=== PATIENT | male | born 1985 | race African-American/Black ===

== ENCOUNTER 2018-11-14 17:37 | Inpatient (IN) ==
[2018-11-14] MEDS ORDERED: Sod Chloride 0.9% Inj 1,000 ML IV.SIG ONE (18:12)
[2018-11-14] MEDS ORDERED: Sod Chloride 0.9% Inj 1,000 ML IV.SIG SCH (18:30)
--- NOTE | 2018-11-14 18:32 | ED ---
HPI General Chief complaint: Nausea/Vomiting/Diarrhea Stated complaint: Medical Time Seen by Provider: 11/14/18 18:06 Source: patient Mode of arrival: ambulatory Limitations: no limitations History of Present Illness HPI narrative: Patient is a 33-year-old male presenting to the emergency department for evaluation of nausea, vomiting, dark urine and diarrhea. Patient symptoms started Thursday. He states that he noticed the dark urine. He has felt nauseated and has vomited several times over the weekend, none today. He reports 4-5 episodes of loose stools daily. He stated that his stools are light-colored. He reports more of a suprapubic pain however this is resolved. He denies any fever, chills, chest pain, shortness of breath. He reports that he drank alcohol Candelario night, to drink specifically and he has not had any alcohol in several months because he was incarcerated. He reports that he had a negative workup when he was first put in custodial. He denies any history of cirrhosis, hepatitis or IV drug use. Related Data Home Medications Medication Instructions Recorded Confirmed No Known Home Medications 11/14/18 11/14/18 Allergies Allergy/AdvReac Type Severity Reaction Status Date / Time *MDRO Multi-Drug Resistant AdvReac Unknown Uncoded 12/18/14 10:28 Organism Review of Systems ROS: all other systems reviewed are negative PMFSH History History Provided By: Patient Medical History Medical History Asthma (Acute) Social History Social History Substance History: Active Abuse Smoking Status: Current every day smoker Tobacco Type: Cigarettes How Often Do You Have a Drink Containing Alcohol: 2 to 4 times a month Recent Travel in [facility] within the Last 8 Weeks: No Recent Out of Country Travel within the Last 8 Weeks: No Exam Narrative Exam Narrative: GENERAL: Well-developed, well-nourished, alert -[place] male. Presenting in no acute distress. SKIN: Focused skin assessment warm/dry. HEAD: Atraumatic. Normocephalic. EYES: Pupils equal and round. Positive scleral icterus. No injection or drainage. ENT: No nasal bleeding or discharge. Mucous membranes pink and moist. NECK: Trachea midline. No JVD. CARDIOVASCULAR: Regular rate and rhythm. No murmur appreciated. RESPIRATORY: No accessory muscle use. Clear to auscultation. Breath sounds equal bilaterally. GASTROINTESTINAL: Abdomen soft, non-tender, nondistended. Hepatic and splenic margins not palpable. MUSCULOSKELETAL: No obvious deformities. No clubbing. No cyanosis. No edema. NEUROLOGICAL: Awake and alert. No obvious cranial nerve deficits. Motor grossly within normal limits. Normal speech. PSYCHIATRIC: Appropriate mood and affect; insight and judgment normal. Course Initial Documented Vital Signs Temperature 99.4 F 11/14/18 18:01 Pulse Rate 81 11/14/18 18:01 Respiratory Rate 20 11/14/18 18:01 Blood Pressure 156/93 H 11/14/18 18:01 Pulse Oximetry 99 11/14/18 18:01 Last Documented Vital Signs Temperature 99.4 F 11/14/18 18:01 Pulse Rate 81 11/14/18 18:01 Respiratory Rate 20 11/14/18 18:01 Blood Pressure 156/93 H 11/14/18 18:01 Pulse Oximetry 99 11/14/18 18:01 Medical Decision Making MDM Narrative Medical decision making narrative: Patient is otherwise well-appearing 33-year- old male who appears jaundiced, with nausea and vomiting, diarrhea since Thursday after having 2 alcoholic drinks. Labs and imaging ordered and pending. CBC with no acute findings, chemistry with significantly elevated liver enzymes 651/1749, bilirubin is 16.6. Ultrasound resulted with a liver of 20.2 cm, the gallbladder was not visualized. This was followed up with a CT scan of the abdomen pelvis. Gallbladder was collapsed with thickened roberson. This was reported as nonspecific. Patient was given 2 L of IV fluids, his vital signs remained stable. A hepatitis panel was ordered. Patient will be admitted for further evaluation. Discussed with Dr. Gomez who accepted admission. Admit orders placed. Patient was advised on clinical findings and plan of care and is agreeable to stay. Medical Screen Exam Complete: Yes Emergency Medical Condition: Yes Differential Diagnosis Differential Diagnosis: Cholecystitis versus pancreatitis versus obstruction versus hepatitis versus metabolic abnormality versus other Medical Records Medical records reviewed: Yes I reviewed the patient's medical records. Lab Data Lab results reviewed: Yes I reviewed the patient's lab results. Result diagrams: 11/14/18 18:34 11/14/18 18:34 Lab Results 11/14/18 11/14/18 11/14/18 Range/Units 18:34 18:34 18:34 WBC 7.2 (4.0-11.0) th/mm3 RBC 4.41 L (4.50-5.90) mil/mm3 Hgb 12.7 L (13.0-17.0) gm/dL Hct 38.3 L (39.0-51.0) % MCV 86.9 (80.0-100.0) fL MCH 28.9 (27.0-34.0) pg MCHC 33.2 (32.0-36.0) % RDW 14.1 (11.6-17.2) % Plt Count 294 (150-450) th/mm3 MPV 8.5 (7.0-11.0) fL Neut % (Auto) 60.3 (16.0-70.0) % Lymph % (Auto) 22.1 (9.0-44.0) % Evangeline % (Auto) 16.1 H (0.0-8.0) % Eos % (Auto) 0.7 (0.0-4.0) % Baso % (Auto) 0.8 (0.0-2.0) % Neut # (Auto) 4.3 (1.8-7.7) th/mm3 Lymph # (Auto) 1.6 (1.0-4.8) th/mm3 Evangeline # (Auto) 1.2 H (0.0-0.9) th/mm3 Eos # (Auto) 0.1 (0.0-0.4) th/mm3 Baso # (Auto) 0.1 (0.0-0.2) th/mm3 WBC Differential . Differential Comment Auto diff final PT (9.8-11.6) sec INR Ratio APTT (23.4-31.7) sec Sodium 136 (136-145) meq/L Potassium 4.0 (3.5-5.1) meq/L Chloride 104 (98-107) meq/L Carbon Dioxide 28.2 (21.0-32.0) meq/L Anion Gap 4 L (5-15) meq/L BUN 14 (7-18) mg/dL Creatinine 1.30 (0.60-1.30) mg/dL Estimated GFR 76 L (>89) mL/min Random Glucose 85 (74-106) mg/dL Calcium 8.4 L (8.5-10.1) mg/dL Magnesium 2.0 (1.5-2.5) mg/dL Total Bilirubin 16.6 H (0.2-1.0) mg/dL AST 651 H (15-37) U/L ALT 1759 H (12-78) U/L Alkaline Phosphatase 43 L (45-117) U/L Total Protein 8.0 (6.4-8.2) g/dL Albumin 2.8 L (3.4-5.0) g/dL Lipase 114 (73-393) U/L Urine Color Mar[place]uy (Yellw/Straw) Urine Clarity Hazy H (Clear) Urine pH 5.0 (5.0-8.5) Ur Specific Byron 1.028 (1.002-1.035) Urine Protein 30 H (Neg-Trace) mg/dL Urine Glucose (UA) Negative (Negative) mg/dL Urine Ketones Negative (Negative) mg/dL Urine Occult Blood Negative (Negative) Urine Nitrate Negative (Negative) Urine Bilirubin Moderate H (Negative) Urine Ictotest Positive H (Negative) Urine Urobilinogen 4 or greater (Less than 2) mg/dL Ur Leukocyte Esterase Negative (Negative) Urine RBC 1 (0-3) /hpf Urine WBC 6 H (0-5) /hpf Urine Mucus Many H (Occasional) /lpf Micro UA Comment Culture not ind Ur Microscopic Review Not Reportable Urine Culture Comments Culture not ind 11/14/18 Range/Units 19:07 WBC (4.0-11.0) th/mm3 RBC (4.50-5.90) mil/mm3 Hgb (13.0-17.0) gm/dL Hct (39.0-51.0) % MCV (80.0-100.0) fL MCH (27.0-34.0) pg MCHC (32.0-36.0) % RDW (11.6-17.2) % Plt Count (150-450) th/mm3 MPV (7.0-11.0) fL Neut % (Auto) (16.0-70.0) % Lymph % (Auto) (9.0-44.0) % Evangeline % (Auto) (0.0-8.0) % Eos % (Auto) (0.0-4.0) % Baso % (Auto) (0.0-2.0) % Neut # (Auto) (1.8-7.7) th/mm3 Lymph # (Auto) (1.0-4.8) th/mm3 Evangeline # (Auto) (0.0-0.9) th/mm3 Eos # (Auto) (0.0-0.4) th/mm3 Baso # (Auto) (0.0-0.2) th/mm3 WBC Differential Differential Comment PT 15.1 H (9.8-11.6) sec INR 1.5 Ratio APTT 40.6 H (23.4-31.7) sec Sodium (136-145) meq/L Potassium (3.5-5.1) meq/L Chloride (98-107) meq/L Carbon Dioxide (21.0-32.0) meq/L Anion Gap (5-15) meq/L BUN (7-18) mg/dL Creatinine (0.60-1.30) mg/dL Estimated GFR (>89) mL/min Random Glucose (74-106) mg/dL Calcium (8.5-10.1) mg/dL Magnesium (1.5-2.5) mg/dL Total Bilirubin (0.2-1.0) mg/dL AST (15-37) U/L ALT (12-78) U/L Alkaline Phosphatase (45-117) U/L Total Protein (6.4-8.2) g/dL Albumin (3.4-5.0) g/dL Lipase (73-393) U/L Urine Color (Yellw/Straw) Urine Clarity (Clear) Urine pH (5.0-8.5) Ur Specific Byron (1.002-1.035) Urine Protein (Neg-Trace) mg/dL Urine Glucose (UA) (Negative) mg/dL Urine Ketones (Negative) mg/dL Urine Occult Blood (Negative) Urine Nitrate (Negative) Urine Bilirubin (Negative) Urine Ictotest (Negative) Urine Urobilinogen (Less than 2) mg/dL Ur Leukocyte Esterase (Negative) Urine RBC (0-3) /hpf Urine WBC (0-5) /hpf Urine Mucus (Occasional) /lpf Micro UA Comment Ur Microscopic Review Urine Culture Comments Imaging Data Radiologist's impression: Abdomen Ultrasound 11/14/18 18:21 CONCLUSION: Gallbladder not visualized. Patient denies cholecystectomy. Abdomen/Pelvis CT 11/14/18 20:02 CONCLUSION: 1. Collapsed gallbladder with diffusely thickened wall, nonspecific. 2. Abdomen and pelvis CT otherwise unremarkable. Discharge Plan Discharge Disposition Patient Disposition: ED Admit(ED Internal Use Only) Discharge Condition Condition: Stable Discharge Order Discharge Orders: ED Use Only Admit Order (Routine); Ordered 11/14/18 Ordered By: Carrie Alvarez Discharge Details Diagnosis: Acute liver failure Physicians Team ED Provider: Jose Hernandez ED Midlevel Provider: Carrie Alvarez Primary Care Provider: Primary Care Alayna Gamez Attending Provider: France Gomez Status ED Status: Admitted Patient
[2018-11-14 18:49] LABS: Baso # (Auto) 0.1 th/mm3 (0.0-0.2); Baso % (Auto) 0.8 % (0.0-2.0); Eos # (Auto) 0.1 th/mm3 (0.0-0.4); Eos % (Auto) 0.7 % (0.0-4.0); Hematocrit 38.3 % (39.0-51.0); Hemoglobin 12.7 gm/dL (13.0-17.0); Lymph # (Auto) 1.6 th/mm3 (1.0-4.8); Lymph % (Auto) 22.1 % (9.0-44.0); Mean Corpuscular HGB Conc 33.2 % (32.0-36.0); Mean Corpuscular Hemoglobin 28.9 pg (27.0-34.0); Mean Corpuscular Volume 86.9 fL (80.0-100.0); Mean Platelet Volume 8.5 fL (7.0-11.0); Mono # (Auto) 1.2 th/mm3 (0.0-0.9); Mono % (Auto) 16.1 % (0.0-8.0); Neut # (Auto) 4.3 th/mm3 (1.8-7.7); Neut % (Auto) 60.3 % (16.0-70.0); Platelet Count 294 th/mm3 (150-450); Red Blood Count 4.41 mil/mm3 (4.50-5.90); Red Cell Distribution Width 14.1 % (11.6-17.2); White Blood Count 7.2 th/mm3 (4.0-11.0)
[2018-11-14 19:00] LABS: Bilirubin,Urine Moderate (Negative); Clarity,Urine Hazy (Clear); Color,Urine Amber (Yellw/Straw); Glucose,Urine (UA) Negative (Negative); Leukocyte Esterase,Urine Negative (Negative); Mucus,Urine Many /lpf (Occasional); Nitrite,Urine Negative (Negative); Specific Gravity,Urine 1.028 (1.002-1.035)
[2018-11-14 19:02] LABS: Ictotest,Urine Positive (Negative); Urobilinogen,Urine 4 or Greater mg/dL (Less than 2)
[2018-11-14 19:35] LABS: Activated Partial Thrombo Time 40.6 sec (23.4-31.7); INR 1.5 Ratio
[2018-11-14 19:41] LABS: Prothrombin Time 15.1 sec (9.8-11.6)
[2018-11-14 19:45] LABS: Alanine Aminotransferase 1759 U/L (12-78); Alkaline Phosphatase 43 U/L (45-117)
--- NOTE | 2018-11-14 19:53 | US ---
EXAM DATE: 11/14/2018 7:41 PM EST AGE/SEX: 33 years / Male INDICATIONS: Abdominal pain. CLINICAL DATA: This is the patient's initial encounter. Patient reports that signs and symptoms have been present for 3 days and indicates a pain score of 1/10. MEDICAL/SURGICAL HISTORY: Asthma. None. COMPARISON: No prior exams available for comparison. MEASUREMENTS: Liver:__ 20.2 cm. Common Bile Duct:___ 2mm. Right Kidney:___11.9 x 7.1 x 6.3 cm. Left Kidney:___12.8 x 5.3 x 6.5 cm. Spleen:___10.8 cm. FINDINGS: Liver: Homogeneous and within normal limits. Portal Vein: Hepatopedal flow seen in portal vein. Common Duct: No intraluminal mass or stone visualized. Gallbladder: Not visualized. Pancreas: The visualized portions are within normal limits Right Kidney: Normal echogenicity and cortical thickness. No mass or hydronephrosis. Left Kidney: Normal echogenicity and cortical thickness. No mass or hydronephrosis. Ascites: None Pleural Effusion: None Spleen: No focal lesion. Aorta: Non aneurysmal. IVC: Within normal limits Other: None. CONCLUSION: Gallbladder not visualized. Patient denies cholecystectomy. Electronically signed by: Blu Walden MD Board Certified Radiologist 11/14/2018 7:52 PM EST
[2018-11-14 20:03] LABS: Sodium 136 meq/L (136-145)
[2018-11-14 20:04] LABS: Albumin 2.8 g/dL (3.4-5.0); Anion Gap 4 meq/L (5-15); Aspartate Aminotransferase 651 U/L (15-37); Blood Urea Nitrogen 14 mg/dL (7-18); Calcium 8.4 mg/dL (8.5-10.1); Carbon Dioxide 28.2 meq/L (21.0-32.0); Chloride 104 meq/L (98-107); Glomerular Filtration Rate 76 mL/min (>89); Glucose,Random 85 mg/dL (74-106); Lipase 114 U/L (73-393)
--- NOTE | 2018-11-14 22:24 | CT ---
EXAM DATE: 11/14/2018 10:11 PM EST AGE/SEX: 33 years / Male INDICATIONS: Abdomen pain with diarrhea. CLINICAL DATA: This is the patient's initial encounter. Patient reports that signs and symptoms have been present for 1 day and indicates a pain score of 5/10. MEDICAL/SURGICAL HISTORY: Asthma. None. ORAL CONTRAST: No oral contrast ingested. RADIATION DOSE: 29.00 CTDI (mGy) COMPARISON: No prior exams available for comparison. TECHNIQUE: Multiple contiguous axial images were obtained through the abdomen and pelvis following b olus infusion of 97 ml Omnipaque 350 (iohexol) nonionic water-soluble contrast as a single exam dos e. No oral contrast ingested. Using automated exposure control and adjustment of the mA and/or kV ac cording to patient size, radiation dose was kept as low as reasonably achievable to obtain optimal di agnostic quality images. DICOM format image data is available electronically for review and comparis on. FINDINGS: Lower Lungs: The visualized lower lungs are clear. Liver: Liver is homogeneous and within normal limits. Gallbladder is collapsed with diffusely thicken ed wall. Spleen: Homogeneous density without enlargement. Pancreas: Unremarkable without mass or calcification. Kidneys: Normal in size and shape. No evidence of mass or hydronephrosis. Adrenal Glands: Unremarkable. Aorta: The aorta and proximal iliac vessels are grossly unremarkable without aneurysmal dilation. Bowel/Mesentery: No evidence of bowel dilatation. No free air or free fluid. Appendix within normal limits. Abdominal Wall: Intact. Retroperitoneum: No evidence of adenopathy in the retrocrural, para-aortic, or deep pelvic regions. Bladder: Contours are smooth. Reproductive Organs: Unremarkable. Inguinal: The inguinal region is unremarkable without evidence of adenopathy. Bony Structures: Unremarkable. CONCLUSION: 1. Collapsed gallbladder with diffusely thickened wall, nonspecific. 2. Abdomen and pelvis CT otherwise unremarkable. Electronically signed by: Blu Walden MD Board Certified Radiologist 11/14/2018 10:23 PM EST
[2018-11-14] MEDS ORDERED: Naloxone Inj 0.4 MG/ML Vial IV.PUSH PRN (22:49)
[2018-11-14] MEDS ORDERED: Morphine Inj 4 MG/ML Vial IV.PUSH PRN (22:49)
[2018-11-14] MEDS ORDERED: Bisacodyl 10 MG Supp RECTAL PRN (22:49)
--- NOTE | 2018-11-14 22:52 | P.HPIM ---
History of Present Illness Primary Care Physician: No Primary Care Physician History of Present Illness: This is a 33-year-old male with no reported PMH who presents the ER with complaints of abdominal pain, brown-colored urine and scleral icterus. States he was in senior care for the last 10 months, was released on , had some chicken then developed generalized abdominal pain, now w/ brown-colored urine and icterus. No previous h/o similar symptoms. States he was tested for Hepatitis in half-way and was negative. Denies IVDU. No h/o Alcohol. On arrival, BP 156/93, HR 81, O2 sat 99% on RA, Temp 99.4. CBC essentially unremarkable. INR 1.5. Chemistry unremarkable. Total Bili 16.6. AST 651. ALT 1759. ALP 43. Lipase 114. UA negative for UTI. CT Abdomen/ Pelvis collapsed gallbladder with diffusely thickened wall. Gallbladder US, gallbladder not visualized no history of cholecystectomy. Diagnosis (1) Hepatitis: (2) HTN (hypertension): (3) Coagulopathy: Inpatient Certification Inpatient Certification: I certify that the inpatient services were ordered in accordance with Medicare regulations governing the order. This includes certification that hospital inpatient services are reasonable and necessary and in the case of services not specified as inpatient-only under 42 CFR 419.22(n), that they are appropriately provided as inpatient services in accordance to with the 2-midnight benchmark under 43 CFR 412.3(e) Estimated Total Length of Stay (Days): 2 Plans for Post Hospital Care: Not yet determined Review of Systems PAST FAMILY HISTORY: Reviewed. No h/o DM or CAD Review of Systems: all other systems reviewed are negative [facility] Medical History Medical History Asthma (Acute) Social History Social History Substance History: Active Abuse Smoking Status: Current every day smoker Tobacco Type: Cigarettes How Often Do You Have a Drink Containing Alcohol: 2 to 4 times a month Recent Travel in [facility] within the Last 8 Weeks: No Recent Out of Country Travel within the Last 8 Weeks: No Substance Abuse Detail Marijuana: Substance Use Status: Active Route Used Substance Abuse: Inhalation Immunization History Tetanus Immunization: <5 Years Medications and Allergies Allergies Allergy/AdvReac Type Severity Reaction Status Date / Time *MDRO Multi-Drug Resistant AdvReac Unknown Uncoded 12/18/14 10:28 Organism Home Medications Medication Instructions Recorded Confirmed Type No Known Home Medications 11/14/18 11/14/18 History Active Medications: Active Medications Sodium Chloride (Ns Flush) 2 ml IV.FLUSH PRN PRN PRN Reason: FLUSH AFTER USING IV ACCESS Physical Exam Vital signs: Last Vital Signs Temp 99.4 F 11/14/18 18:01 Pulse 81 11/14/18 18:01 Resp 20 11/14/18 18:01 BP 156/93 H 11/14/18 18:01 Pulse Ox 99 11/14/18 18:01 Intake & Output 11/12/18 11/13/18 11/14/18 11/15/18 06:59 06:59 06:59 06:59 Intake Total 1999 Balance 1999 Weight 136.078 kg Narrative: PE: GENERAL: Very pleasant young black male in no acute distress. SKIN: Focused skin assessment warm and dry. HEENT: PERRLA, EOMI. + scleral icterus. No conjunctival pallor. No lid lag or facial droop. CARDIOVASCULAR: Regular rate and rhythm. No obvious murmurs to auscultation. No chest tenderness to palpation. RESPIRATORY: No obvious rhonchi or wheezing. Clear to auscultation. Breath sounds equal bilaterally. GASTROINTESTINAL: Abdomen soft, mild epigastric tenderness to palpation, nondistended. BS normal. MUSCULOSKELETAL: Extremities without clubbing, cyanosis, or edema. No obvious deformities. NEUROLOGICAL: Awake, alert and oriented x4. No focal neurologic deficits. Moving both upper and lower extremities spontaneously. PSYCHIATRIC: Appropriate mood and affect. Insight and judgment normal. Results Labs CBC & Chem 7: 11/14/18 18:34 11/14/18 18:34 Imaging Impressions Abdomen Ultrasound 11/14/18 18:21 CONCLUSION: Gallbladder not visualized. Patient denies cholecystectomy. Abdomen/Pelvis CT 11/14/18 20:02 CONCLUSION: 1. Collapsed gallbladder with diffusely thickened wall, nonspecific. 2. Abdomen and pelvis CT otherwise unremarkable. Caprini VTE Risk Assessment Caprini VTE Risk Assessment: No/Low Risk (score <= 1) VTE Pharmacological Exception Reason: High risk for bleeding Caprini Risk Assessment Model: Point Value = 1 Point Value = 2 Point Value = 3 Point Value = 5 Age 41-60 Minor surgery BMI > 25 kg/m2 Swollen legs Varicose veins or History of unexplained or recurrent spontaneous Oral contraceptives or hormone replacement Sepsis (< 1 month) Serious lung disease, including pneumonia (< 1 month) Abnormal pulmonary function Acute myocardial infarction Congestive heart failure (< 1 month) History of inflammatory bowel disease Medical patient at bed rest Age 61-74 Arthroscopic surgery Major open surgery (> 45 min) Laparoscopic surgery (> 45 min) Malignancy Confined to bed (> 72 hours) Immobilizing plaster cast Central venous access Age >= 75 History of VTE Family history of VTE Factor V Leiden Prothrombin [id number] Lupus anticoagulant Anticardiolipin antibodies Elevated serum homocysteine Heparin-induced thrombocytopenia Other congenital or acquired thrombophilia Stroke (< 1 month) Elective arthroplasty Hip, pelvis, or leg fracture Acute spinal cord injury (< 1 month) Prophylaxis Regimen: Total Risk Factor Score Risk Level Prophylaxis Regimen 0-1 Low Early ambulation 2 Moderate Order ONE of the following: *Sequential Compression Device (SCD) *Heparin 5000 units SQ BID 3-4 Higher Order ONE of the following medications: *Heparin 5000 units SQ TID *Enoxaparin/Lovenox 40 mg SQ daily (WT < 150 kg, CrCl > 30 mL/min) *Enoxaparin/Lovenox 30 mg SQ daily (WT < 150 kg, CrCl > 10-29 mL/min) *Enoxaparin/Lovenox 30 mg SQ BID (WT < 150 kg, CrCl > 30 mL/min) AND/OR *Sequential Compression Device (SCD) 5 or more Highest Order ONE of the following medications: *Heparin 5000 units SQ TID (Preferred with Epidurals) *Enoxaparin/Lovenox 40 mg SQ daily (WT < 150 kg, CrCl > 30 mL/min) *Enoxaparin/Lovenox 30 mg SQ daily (WT < 150 kg, CrCl > 10-29 mL/min) *Enoxaparin/Lovenox 30 mg SQ BID (WT < 150 kg, CrCl > 30 mL/min) AND *Sequential Compression Device (SCD) Assessment and Plan (1) Hepatitis: Code(s): K75.9 - Inflammatory liver disease, unspecified Status: Acute (2) HTN (hypertension): Code(s): I10 - Essential (primary) hypertension Status: Acute (3) Coagulopathy: Code(s): D68.9 - Coagulation defect, unspecified Status: Acute Plan A/P: 1. Acute Hepatitis: LFTs significantly elevated, Total Bili 16, denies h/o similar symptoms, reports Hepatitis negative recently, CT Abd/Pelvis w/ thickened gallbladder, will continue w/ treatment for possible acute cholecystitis, analgesics/antiemetics as needed. Check Hepatitis Profile, check Tylenol level. Consult GI for further eval/intervention. 2. Coagulopathy: INR 1.5, secondary to above, no active bleeding at this time , repeat INR in am. 3. HTN: Uncontrolled, likely secondary to pain complaints, continue analgesics , monitor BP, antihypertensives as needed for BP >180 4. DVT Prophylaxis: Pharmacologic contraindication in light of coagulopathy. 5. Social work for d/c planning as needed. 6. Case discussed w/ ER physician at length, labs/records/imaging reviewed by me.
[2018-11-15] MEDS: Piperacil/Tazo 4.5 GM Premix 4.5 GM/100 ML BAG IV.SIG SCH ×4 (00:08→16:41)
[2018-11-15 01:51] LABS: Hepatitis A IgM Antibody Reactive (Nonreactive); Hepatitits B Surface Antigen Nonreactive (Nonreactive)
[2018-11-15] MEDS: Sod Chloride 0.9% Inj 1,000 ML IV.CONT SCH ×3 (01:51→20:20)
[2018-11-15 08:16] LABS: Baso % (Auto) 0.7 % (0.0-2.0); Eos # (Auto) 0.1 th/mm3 (0.0-0.4); Hematocrit 31.9 % (39.0-51.0); Lymph # (Auto) 1.5 th/mm3 (1.0-4.8); Mean Corpuscular HGB Conc 34.4 % (32.0-36.0); Mean Corpuscular Hemoglobin 29.4 pg (27.0-34.0); Mean Corpuscular Volume 85.5 fL (80.0-100.0); Mean Platelet Volume 8.7 fL (7.0-11.0); Mono # (Auto) 1.3 th/mm3 (0.0-0.9); Mono % (Auto) 18.6 % (0.0-8.0); Neut % (Auto) 57.7 % (16.0-70.0); Platelet Count 246 th/mm3 (150-450); Red Blood Count 3.73 mil/mm3 (4.50-5.90); Red Cell Distribution Width 13.9 % (11.6-17.2); White Blood Count 6.9 th/mm3 (4.0-11.0)
[2018-11-15 08:24] LABS: INR 1.1 Ratio; Prothrombin Time 11.3 sec (9.8-11.6)
[2018-11-15 08:59] LABS: Albumin 2.4 g/dL (3.4-5.0); Anion Gap 6 meq/L (5-15); Aspartate Aminotransferase 413 U/L (15-37); Blood Urea Nitrogen 11 mg/dL (7-18); Calcium 7.9 mg/dL (8.5-10.1); Carbon Dioxide 25.3 meq/L (21.0-32.0); Chloride 107 meq/L (98-107); Glomerular Filtration Rate Greater Than 89 mL/min (>89); Glucose,Random 83 mg/dL (74-106); Potassium 3.4 meq/L (3.5-5.1); Sodium 138 meq/L (136-145)
[2018-11-15 09:08] LABS: Alanine Aminotransferase 1249 U/L (12-78); Alkaline Phosphatase 113 U/L (45-117); Total Protein 6.6 g/dL (6.4-8.2)
[2018-11-15] MEDS: Senna/Docusate Sodium 8.6/50 MG Tablet PO SCH ×2 (09:40→20:20)
--- NOTE | 2018-11-15 12:23 | P.PN ---
Subjective Interval history: Follow-up acute hepatitis A November 15, 2018-patient seen and examined, denies any diarrhea, complains of abdominal soreness. No nausea or emesis. He denies any recent travel overseas Physical Exam Vital signs: Vital Signs 11/14/18 18:01 11/14/18 22:06 11/15/18 00:08 Temperature 99.4 F Pulse Rate 81 82 Respiratory Rate 20 16 14 Blood Pressure 156/93 H 174/97 H Pulse Oximetry 99 100 100 11/15/18 04:00 11/15/18 08:25 Temperature 98.1 F 97.8 F Pulse Rate 85 75 Respiratory Rate 15 18 Blood Pressure 134/68 143/85 H Pulse Oximetry 95 96 Intake & Output 11/14/18 11/15/18 11/15/18 18:59 06:59 18:59 Intake Total 2200 / 2200 Balance 2200 / 2200 Weight 136.078 kg Intake: IV 2200 / 2200 Zosyn 4.5 GM Premix 4.5 gm In 200 / 200 100 ml @ 200 mls/hr IV.SIG Q6H ANASTACIO Rx#:[id number] NS Inj 1,000 ML @ 1000 mls/hr 1999 / 1999 IV.SIG BOLUS ANASTACIO Rx#:[id number] Other: # Voids 2 Date of Last Bowel Movement 11/15/17 Narrative: GENERAL: NAD SKIN: Warm and dry. HEAD: Atraumatic. Normocephalic. EYES: Pupils equal and round. No scleral icterus. No injection or drainage. ENT: No nasal bleeding or discharge. Mucous membranes pink and moist. NECK: Trachea midline. No JVD. CARDIOVASCULAR: Regular rate and rhythm. RESPIRATORY: No accessory muscle use. Clear to auscultation. Breath sounds equal bilaterally. GASTROINTESTINAL: Abdomen soft, non-tender, nondistended. Hepatic and splenic margins not palpable. MUSCULOSKELETAL: Extremities without clubbing, cyanosis, or edema. No obvious deformities. NEUROLOGICAL: Awake and alert. No obvious cranial nerve deficits. Motor grossly within normal limits. Five out of 5 muscle strength in the arms and legs. Normal speech. PSYCHIATRIC: Appropriate mood and affect; insight and judgment normal. Results - Labs CBC & Chem 7: 11/15/18 06:50 11/15/18 06:50 Laboratory Results - last 24 hr 11/14/18 11/14/18 11/14/18 00:03 18:34 18:34 WBC 7.2 RBC 4.41 L Hgb 12.7 L Hct 38.3 L MCV 86.9 MCH 28.9 MCHC 33.2 RDW 14.1 Plt Count 294 MPV 8.5 Neut % (Auto) 60.3 Lymph % (Auto) 22.1 Shannon % (Auto) 16.1 H Eos % (Auto) 0.7 Baso % (Auto) 0.8 Neut # (Auto) 4.3 Lymph # (Auto) 1.6 Shannon # (Auto) 1.2 H Eos # (Auto) 0.1 Baso # (Auto) 0.1 WBC Differential . Differential Comment Auto diff final PT INR APTT Sodium 136 Potassium 4.0 Chloride 104 Carbon Dioxide 28.2 Anion Gap 4 L BUN 14 Creatinine 1.30 Estimated GFR 76 L Random Glucose 85 Calcium 8.4 L Magnesium 2.0 Total Bilirubin 16.6 H AST 651 H ALT 1759 H Alkaline Phosphatase 43 L Total Protein 8.0 Albumin 2.8 L Lipase 114 Urine Color Urine Clarity Urine pH Ur Specific [place] Urine Protein Urine Glucose (UA) Urine Ketones Urine Occult Blood Urine Nitrate Urine Bilirubin Urine Ictotest Urine Urobilinogen Ur Leukocyte Esterase Urine RBC Urine WBC Urine Mucus Micro UA Comment Ur Microscopic Review Urine Culture Comments Acetaminophen Hepatitis A IgM Ab Reactive H Hep Bs Antigen Nonreactive Hep B Core IgM Ab Nonreactive Hep C IgG Ab Nonreactive 11/14/18 11/14/18 11/14/18 18:34 18:34 19:07 WBC RBC Hgb Hct MCV MCH MCHC RDW Plt Count MPV Neut % (Auto) Lymph % (Auto) Shannon % (Auto) Eos % (Auto) Baso % (Auto) Neut # (Auto) Lymph # (Auto) Shannon # (Auto) Eos # (Auto) Baso # (Auto) WBC Differential Differential Comment PT 15.1 H INR 1.5 APTT 40.6 H Sodium Potassium Chloride Carbon Dioxide Anion Gap BUN Creatinine Estimated GFR Random Glucose Calcium Magnesium Total Bilirubin AST ALT Alkaline Phosphatase Total Protein Albumin Lipase Urine Color [place] Urine Clarity Hazy H Urine pH 5.0 Ur Specific [place] 1.028 Urine Protein 30 H Urine Glucose (UA) Negative Urine Ketones Negative Urine Occult Blood Negative Urine Nitrate Negative Urine Bilirubin Moderate H Urine Ictotest Positive H Urine Urobilinogen 4 or greater Ur Leukocyte Esterase Negative Urine RBC 1 Urine WBC 6 H Urine Mucus Many H Micro UA Comment Culture not ind Ur Microscopic Review Not Reportable Urine Culture Comments Culture not ind Acetaminophen Less than 2.0 L Hepatitis A IgM Ab Hep Bs Antigen Hep B Core IgM Ab Hep C IgG Ab 11/15/18 11/15/18 11/15/18 06:50 06:50 06:50 WBC 6.9 RBC 3.73 L Hgb 11.0 L Hct 31.9 L MCV 85.5 MCH 29.4 MCHC 34.4 RDW 13.9 Plt Count 246 MPV 8.7 Neut % (Auto) 57.7 Lymph % (Auto) 22.0 Shannon % (Auto) 18.6 H Eos % (Auto) 1.0 Baso % (Auto) 0.7 Neut # (Auto) 4.0 Lymph # (Auto) 1.5 Shannon # (Auto) 1.3 H Eos # (Auto) 0.1 Baso # (Auto) 0.0 WBC Differential . Differential Comment Auto diff final PT 11.3 INR 1.1 APTT Sodium 138 Potassium 3.4 L Chloride 107 Carbon Dioxide 25.3 Anion Gap 6 BUN 11 Creatinine 1.09 Estimated GFR Greater than 89 Random Glucose 83 Calcium 7.9 L Magnesium Total Bilirubin 13.2 H AST 413 H ALT 1249 H Alkaline Phosphatase 113 Total Protein 6.6 D Albumin 2.4 L Lipase Urine Color Urine Clarity Urine pH Ur Specific [place] Urine Protein Urine Glucose (UA) Urine Ketones Urine Occult Blood Urine Nitrate Urine Bilirubin Urine Ictotest Urine Urobilinogen Ur Leukocyte Esterase Urine RBC Urine WBC Urine Mucus Micro UA Comment Ur Microscopic Review Urine Culture Comments Acetaminophen Hepatitis A IgM Ab Hep Bs Antigen Hep B Core IgM Ab Hep C IgG Ab - Imaging Impressions Abdomen Ultrasound 11/14/18 18:21 CONCLUSION: Gallbladder not visualized. Patient denies cholecystectomy. Abdomen/Pelvis CT 11/14/18 20:02 CONCLUSION: 1. Collapsed gallbladder with diffusely thickened wall, nonspecific. 2. Abdomen and pelvis CT otherwise unremarkable. Assessment and Plan - Assessment (1) Hepatitis Code(s): K75.9 - Inflammatory liver disease, unspecified Status: Acute (2) HTN (hypertension) Code(s): I10 - Essential (primary) hypertension Status: Acute (3) Coagulopathy Code(s): D68.9 - Coagulation defect, unspecified Status: Acute - Plan 33-year-old man with 1. Acute Hepatitis A Hepatitis profile positive for hepatitis A IgM antibody GI consultation pending Continue with current conservative treatment Monitor LFTs 2. Coagulopathy Resolved 3. HTN Improving continue analgesics, monitor BP, antihypertensives as needed for BP >180 4. DVT Prophylaxis: Pharmacologic contraindication in light of coagulopathy.
--- NOTE | 2018-11-15 15:17 | P.CONGI ---
History of Present Illness Consult date: 11/15/18 Consult reason: Acute hepatitis A Rule out cholecystitis Chief complaint: Acute liver failure History of Present Illness: Patient is a pleasant 33-year-old male with past medical history significant for asthma. Patient denies any surgical history. Patient presented to [facility] emergency room with complaints of abdominal pain with loose brown stools times 1 day. Patient also presented with scleral icterus times 1 day. Upon consultation, patient states that he has been in halfway for the last 10 months and was recently released 4 days ago. Patient states that after a meal comprising of chicken, he noted that he started to have generalized pain with the above symptoms. Patient denies IV drug use, denies history of alcohol use. Patient does endorse that he smokes 1- 2 packs of cigarettes daily. Patient reports nausea and vomiting x1 2 days ago. Patient denies any fever or chills. Denies recent travel, tattoos or sick contacts. Upon arrival to emergency room, patient's hepatitis screening reactive for hepatitis A IgM. Our service has been consulted to evaluate patient for acute hepatitis A/rule out cholecystitis. <Virginia Valdes - Last Filed: 11/15/18 16:02> Review of Systems All other systems reviewed negative except as stated in HPI <Virginia Valdes - Last Filed: 11/15/18 16:02> PMFSH - History History Provided By: Patient - Medical History Medical History: Medical History (Last Reviewed 11/14/18 @ 18:41 by María Russo) Asthma - Tobacco History Second Hand Smoke Exposure: Yes Tobacco Use In Past 30 Days: Yes Smoking Status: Current every day smoker Tobacco Type: Cigarettes - Alcohol History How Often Do You Have a Drink Containing Alcohol: Monthly or less - Substance Use History Substance History: Active Abuse - Substance Use Type Marijuana Status: Active Route Used: Inhalation Reason for Use: Get High - Travel History Recent Travel in the [place] Within the Last 8 Weeks: No Recent Travel Out of the Country Within the Last 8 Weeks: No - Immunization History Tetanus Immunization: <5 Years Hx Influenza Vaccine This Season: No <Virginia Valdes - Last Filed: 11/15/18 16:02> - Medical History Medical History: Medical History (Last Reviewed 11/14/18 @ 18:41 by María Russo) Asthma <Reno Mehta - Last Filed: 11/15/18 18:19> Medications and Allergies Active Medications: Active Medications Al Hydroxide/Mg Hydroxide (Milk Of Magnesia Liq) 30 ml PO Q12H PRN PRN Reason: Mild Constipation Bisacodyl (Dulcolax Supp) 10 mg RECTAL DAILY PRN PRN Reason: SEVERE CONSITIPATION Sodium Chloride (Ns Inj) 1,000 mls @ 100 mls/hr IV.CONT .Q10H [facility] Last Admin: 11/15/18 12:19 Dose: 100 mls/hr Piperacillin/Tazobactam/Dextrose (Zosyn 4.5 Gm Premix) 4.5 gm in 100 mls @ 200 mls/hr IV.SIG Q6H [facility] Last Infusion: 11/15/18 13:36 Dose: Infused Lactulose (Lactulose Liq) 30 ml PO DAILY PRN PRN Reason: SEVERE CONSITIPATION Morphine Sulfate (Morphine Inj) 2 mg IV.PUSH Q4H PRN PRN Reason: PAIN 6-10;IF UNABLE TO TAKE PO Naloxone HCl (Narcan Inj) 0.4 mg IV.PUSH UNSCH PRN PRN Reason: SEE LABEL COMMENTS Ondansetron HCl (Zofran Inj) 4 mg IV.PUSH Q6H PRN PRN Reason: NAUSEA OR VOMITING Oxycodone HCl (Roxicodone) 5 mg PO Q4H PRN PRN Reason: PAIN SCALE 3 TO 5 Senna/Docusate Sodium (Nidia-Colace) 1 tab PO BID [facility] Last Admin: 11/15/18 09:40 Dose: 1 tab Sennosides (Senokot) 17.2 mg PO Q12H PRN PRN Reason: Moderate Constipation Sodium Chloride (Ns Flush) 2 ml IV.FLUSH PRN PRN PRN Reason: FLUSH AFTER USING IV ACCESS Sodium Chloride (Ns Flush) 2 ml IV.FLUSH PRN PRN PRN Reason: FLUSH AFTER USING IV ACCESS Sodium Chloride (Ns Flush) 2 ml IV.FLUSH BID [facility] Last Admin: 11/15/18 09:40 Dose: Not Given Sumatriptan Succinate (Imitrex) 25 mg PO ONCE ONE Stop: 11/15/18 14:57 <Virginia Valdes - Last Filed: 11/15/18 16:02> Active Medications: Active Medications Al Hydroxide/Mg Hydroxide (Milk Of Magnesia Liq) 30 ml PO Q12H PRN PRN Reason: Mild Constipation Bisacodyl (Dulcolax Supp) 10 mg RECTAL DAILY PRN PRN Reason: SEVERE CONSITIPATION Sodium Chloride (Ns Inj) 1,000 mls @ 100 mls/hr IV.CONT .Q10H [facility] Last Infusion: 11/15/18 17:00 Dose: 0 mls/hr Piperacillin/Tazobactam/Dextrose (Zosyn 4.5 Gm Premix) 4.5 gm in 100 mls @ 200 mls/hr IV.SIG Q6H [facility] Last Infusion: 11/15/18 17:00 Dose: 0 mls/hr Lactulose (Lactulose Liq) 30 ml PO DAILY PRN PRN Reason: SEVERE CONSITIPATION Morphine Sulfate (Morphine Inj) 2 mg IV.PUSH Q4H PRN PRN Reason: PAIN 6-10;IF UNABLE TO TAKE PO Naloxone HCl (Narcan Inj) 0.4 mg IV.PUSH UNSCH PRN PRN Reason: SEE LABEL COMMENTS Ondansetron HCl (Zofran Inj) 4 mg IV.PUSH Q6H PRN PRN Reason: NAUSEA OR VOMITING Oxycodone HCl (Roxicodone) 5 mg PO Q4H PRN PRN Reason: PAIN SCALE 3 TO 5 Senna/Docusate Sodium (Nidia-Colace) 1 tab PO BID [facility] Last Admin: 11/15/18 09:40 Dose: 1 tab Sennosides (Senokot) 17.2 mg PO Q12H PRN PRN Reason: Moderate Constipation Sodium Chloride (Ns Flush) 2 ml IV.FLUSH PRN PRN PRN Reason: FLUSH AFTER USING IV ACCESS Sodium Chloride (Ns Flush) 2 ml IV.FLUSH BID [facility] Last Admin: 11/15/18 09:40 Dose: Not Given <Reno Mehta - Last Filed: 11/15/18 18:19> Allergies Allergy/AdvReac Type Severity Reaction Status Date / Time *MDRO Multi-Drug Resistant AdvReac Unknown Uncoded 12/18/14 10:28 Organism Home Medications Medication Instructions Recorded Confirmed Type No Known Home Medications 11/14/18 11/14/18 History Exam Vital signs: Vital Signs 11/14/18 18:01 11/14/18 22:06 11/15/18 00:08 Temperature 99.4 F Pulse Rate 81 82 Respiratory Rate 20 16 14 Blood Pressure 156/93 H 174/97 H Pulse Oximetry 99 100 100 11/15/18 04:00 11/15/18 08:25 11/15/18 13:05 Temperature 98.1 F 97.8 F 98.6 F Pulse Rate 85 75 71 Respiratory Rate 15 18 16 Blood Pressure 134/68 143/85 H 154/94 H Pulse Oximetry 95 96 Intake & Output 11/14/18 11/15/18 11/15/18 18:59 06:59 18:59 Intake Total 2200 / 2200 900 / 900 Balance 2200 / 2200 900 / 900 Weight 136.078 kg Intake: IV 2200 / 2200 900 / 900 NS Inj 1,000 ML @ 100 mls/hr IV 800 / 800 .CONT .Q10H [facility] Rx#:[id number] Zosyn 4.5 GM Premix 4.5 gm In 200 / 200 100 / 100 100 ml @ 200 mls/hr IV.SIG Q6H [facility] Rx#:[id number] NS Inj 1,000 ML @ 1000 mls/hr 1999 / 1999 IV.SIG BOLUS [facility] Rx#:[id number] Other: # Voids 2 Date of Last Bowel Movement 11/15/17 - Constitutional no acute distress - Routine HEENT Exam Head: Present: normocephalic Eye: Present: conjunctival icterus - Routine Neck Exam Present: supple - Routine Respiratory Exam Present: CTA bilaterally. Absent: accessory muscle use - Routine Cardiovascular Exam Present: RRR, S1, S2 - Routine Abdominal Exam Present: soft, normoactive bowel sounds. Absent: tenderness, distended, guarding, firm - Routine Extremities Exam Absent: edema - Routine Skin Exam Present: dry, warm - Routine Neurological Exam Present: alert, oriented X3 <Valdes,Virginia - Last Filed: 11/15/18 16:02> Vital signs: Vital Signs 11/14/18 22:06 11/15/18 00:08 11/15/18 04:00 Temperature 98.1 F Pulse Rate 82 85 Respiratory Rate 16 14 15 Blood Pressure 174/97 H 134/68 Pulse Oximetry 100 100 95 11/15/18 08:25 11/15/18 13:05 11/15/18 17:01 Temperature 97.8 F 98.6 F 98.9 F Pulse Rate 75 71 75 Respiratory Rate 18 16 16 Blood Pressure 143/85 H 154/94 H 154/86 H Pulse Oximetry 96 Intake & Output 11/14/18 11/15/18 11/15/18 18:59 06:59 18:59 Intake Total 2200 / 2200 900 / 900 Balance 2200 / 2200 900 / 900 Weight 136.078 kg Intake: IV 2200 / 2200 900 / 900 NS Inj 1,000 ML @ 100 mls/hr IV 800 / 800 .CONT .Q10H [facility] Rx#:[id number] Zosyn 4.5 GM Premix 4.5 gm In 200 / 200 100 / 100 100 ml @ 200 mls/hr IV.SIG Q6H [facility] Rx#:[id number] NS Inj 1,000 ML @ 1000 mls/hr 1999 / 1999 IV.SIG BOLUS [facility] Rx#:[id number] Other: # Voids 2 Date of Last Bowel Movement 11/15/17 11/15/17 <Reno Mehta A - Last Filed: 11/15/18 18:19> Results - Labs CBC & Chem 7: 11/15/18 06:50 11/15/18 06:50 Labs: Laboratory Results - last 24 hr 11/14/18 11/14/18 11/14/18 00:03 18:34 18:34 WBC 7.2 RBC 4.41 L Hgb 12.7 L Hct 38.3 L MCV 86.9 MCH 28.9 MCHC 33.2 RDW 14.1 Plt Count 294 MPV 8.5 Neut % (Auto) 60.3 Lymph % (Auto) 22.1 [place] % (Auto) 16.1 H Eos % (Auto) 0.7 Baso % (Auto) 0.8 Neut # (Auto) 4.3 Lymph # (Auto) 1.6 [place] # (Auto) 1.2 H Eos # (Auto) 0.1 Baso # (Auto) 0.1 WBC Differential . Differential Comment Auto diff final PT INR APTT Sodium 136 Potassium 4.0 Chloride 104 Carbon Dioxide 28.2 Anion Gap 4 L BUN 14 Creatinine 1.30 Estimated GFR 76 L Random Glucose 85 Calcium 8.4 L Magnesium 2.0 Total Bilirubin 16.6 H AST 651 H ALT 1759 H Alkaline Phosphatase 43 L Total Protein 8.0 Albumin 2.8 L Lipase 114 Urine Color Urine Clarity Urine pH Ur Specific [place] Urine Protein Urine Glucose (UA) Urine Ketones Urine Occult Blood Urine Nitrate Urine Bilirubin Urine Ictotest Urine Urobilinogen Ur Leukocyte Esterase Urine RBC Urine WBC Urine Mucus Micro UA Comment Ur Microscopic Review Urine Culture Comments Acetaminophen Hepatitis A IgM Ab Reactive H Hep Bs Antigen Nonreactive Hep B Core IgM Ab Nonreactive Hep C IgG Ab Nonreactive 11/14/18 11/14/18 11/14/18 18:34 18:34 19:07 WBC RBC Hgb Hct MCV MCH MCHC RDW Plt Count MPV Neut % (Auto) Lymph % (Auto) [place] % (Auto) Eos % (Auto) Baso % (Auto) Neut # (Auto) Lymph # (Auto) [place] # (Auto) Eos # (Auto) Baso # (Auto) WBC Differential Differential Comment PT 15.1 H INR 1.5 APTT 40.6 H Sodium Potassium Chloride Carbon Dioxide Anion Gap BUN Creatinine Estimated GFR Random Glucose Calcium Magnesium Total Bilirubin AST ALT Alkaline Phosphatase Total Protein Albumin Lipase Urine Color [place] Urine Clarity Hazy H Urine pH 5.0 Ur Specific [place] 1.028 Urine Protein 30 H Urine Glucose (UA) Negative Urine Ketones Negative Urine Occult Blood Negative Urine Nitrate Negative Urine Bilirubin Moderate H Urine Ictotest Positive H Urine Urobilinogen 4 or greater Ur Leukocyte Esterase Negative Urine RBC 1 Urine WBC 6 H Urine Mucus Many H Micro UA Comment Culture not ind Ur Microscopic Review Not Reportable Urine Culture Comments Culture not ind Acetaminophen Less than 2.0 L Hepatitis A IgM Ab Hep Bs Antigen Hep B Core IgM Ab Hep C IgG Ab 11/15/18 11/15/18 11/15/18 06:50 06:50 06:50 WBC 6.9 RBC 3.73 L Hgb 11.0 L Hct 31.9 L MCV 85.5 MCH 29.4 MCHC 34.4 RDW 13.9 Plt Count 246 MPV 8.7 Neut % (Auto) 57.7 Lymph % (Auto) 22.0 [place] % (Auto) 18.6 H Eos % (Auto) 1.0 Baso % (Auto) 0.7 Neut # (Auto) 4.0 Lymph # (Auto) 1.5 [place] # (Auto) 1.3 H Eos # (Auto) 0.1 Baso # (Auto) 0.0 WBC Differential . Differential Comment Auto diff final PT 11.3 INR 1.1 APTT Sodium 138 Potassium 3.4 L Chloride 107 Carbon Dioxide 25.3 Anion Gap 6 BUN 11 Creatinine 1.09 Estimated GFR Greater than 89 Random Glucose 83 Calcium 7.9 L Magnesium Total Bilirubin 13.2 H AST 413 H ALT 1249 H Alkaline Phosphatase 113 Total Protein 6.6 D Albumin 2.4 L Lipase Urine Color Urine Clarity Urine pH Ur Specific [place] Urine Protein Urine Glucose (UA) Urine Ketones Urine Occult Blood Urine Nitrate Urine Bilirubin Urine Ictotest Urine Urobilinogen Ur Leukocyte Esterase Urine RBC Urine WBC Urine Mucus Micro UA Comment Ur Microscopic Review Urine Culture Comments Acetaminophen Hepatitis A IgM Ab Hep Bs Antigen Hep B Core IgM Ab Hep C IgG Ab - Imaging Impressions Abdomen Ultrasound 11/14/18 18:21 CONCLUSION: Gallbladder not visualized. Patient denies cholecystectomy. Abdomen/Pelvis CT 11/14/18 20:02 CONCLUSION: 1. Collapsed gallbladder with diffusely thickened wall, nonspecific. 2. Abdomen and pelvis CT otherwise unremarkable. <Virginia Valdes - Last Filed: 11/15/18 16:02> - Labs CBC & Chem 7: 11/15/18 06:50 11/15/18 06:50 Labs: Laboratory Results - last 24 hr 11/14/18 11/14/18 11/14/18 00:03 18:34 18:34 WBC 7.2 RBC 4.41 L Hgb 12.7 L Hct 38.3 L MCV 86.9 MCH 28.9 MCHC 33.2 RDW 14.1 Plt Count 294 MPV 8.5 Neut % (Auto) 60.3 Lymph % (Auto) 22.1 [place] % (Auto) 16.1 H Eos % (Auto) 0.7 Baso % (Auto) 0.8 Neut # (Auto) 4.3 Lymph # (Auto) 1.6 [place] # (Auto) 1.2 H Eos # (Auto) 0.1 Baso # (Auto) 0.1 WBC Differential . Differential Comment Auto diff final PT INR APTT Sodium 136 Potassium 4.0 Chloride 104 Carbon Dioxide 28.2 Anion Gap 4 L BUN 14 Creatinine 1.30 Estimated GFR 76 L Random Glucose 85 Calcium 8.4 L Magnesium 2.0 Iron TIBC % Saturation Ferritin Total Bilirubin 16.6 H AST 651 H ALT 1759 H Alkaline Phosphatase 43 L Ammonia Total Protein 8.0 Albumin 2.8 L Lipase 114 Urine Color Urine Clarity Urine pH Ur Specific [place] Urine Protein Urine Glucose (UA) Urine Ketones Urine Occult Blood Urine Nitrate Urine Bilirubin Urine Ictotest Urine Urobilinogen Ur Leukocyte Esterase Urine RBC Urine WBC Urine Mucus Micro UA Comment Ur Microscopic Review Urine Culture Comments Acetaminophen Hepatitis A IgM Ab Reactive H Hep Bs Antigen Nonreactive Hep B Core IgM Ab Nonreactive Hep C IgG Ab Nonreactive 11/14/18 11/14/18 11/14/18 18:34 18:34 19:07 WBC RBC Hgb Hct MCV MCH MCHC RDW Plt Count MPV Neut % (Auto) Lymph % (Auto) [place] % (Auto) Eos % (Auto) Baso % (Auto) Neut # (Auto) Lymph # (Auto) [place] # (Auto) Eos # (Auto) Baso # (Auto) WBC Differential Differential Comment PT 15.1 H INR 1.5 APTT 40.6 H Sodium Potassium Chloride Carbon Dioxide Anion Gap BUN Creatinine Estimated GFR Random Glucose Calcium Magnesium Iron TIBC % Saturation Ferritin Total Bilirubin AST ALT Alkaline Phosphatase Ammonia Total Protein Albumin Lipase Urine Color [place] Urine Clarity Hazy H Urine pH 5.0 Ur Specific [place] 1.028 Urine Protein 30 H Urine Glucose (UA) Negative Urine Ketones Negative Urine Occult Blood Negative Urine Nitrate Negative Urine Bilirubin Moderate H Urine Ictotest Positive H Urine Urobilinogen 4 or greater Ur Leukocyte Esterase Negative Urine RBC 1 Urine WBC 6 H Urine Mucus Many H Micro UA Comment Culture not ind Ur Microscopic Review Not Reportable Urine Culture Comments Culture not ind Acetaminophen Less than 2.0 L Hepatitis A IgM Ab Hep Bs Antigen Hep B Core IgM Ab Hep C IgG Ab 11/15/18 11/15/18 11/15/18 06:50 06:50 06:50 WBC 6.9 RBC 3.73 L Hgb 11.0 L Hct 31.9 L MCV 85.5 MCH 29.4 MCHC 34.4 RDW 13.9 Plt Count 246 MPV 8.7 Neut % (Auto) 57.7 Lymph % (Auto) 22.0 [place] % (Auto) 18.6 H Eos % (Auto) 1.0 Baso % (Auto) 0.7 Neut # (Auto) 4.0 Lymph # (Auto) 1.5 [place] # (Auto) 1.3 H Eos # (Auto) 0.1 Baso # (Auto) 0.0 WBC Differential . Differential Comment Auto diff final PT 11.3 INR 1.1 APTT Sodium 138 Potassium 3.4 L Chloride 107 Carbon Dioxide 25.3 Anion Gap 6 BUN 11 Creatinine 1.09 Estimated GFR Greater than 89 Random Glucose 83 Calcium 7.9 L Magnesium Iron TIBC % Saturation Ferritin Total Bilirubin 13.2 H AST 413 H ALT 1249 H Alkaline Phosphatase 113 Ammonia Total Protein 6.6 D Albumin 2.4 L Lipase Urine Color Urine Clarity Urine pH Ur Specific [place] Urine Protein Urine Glucose (UA) Urine Ketones Urine Occult Blood Urine Nitrate Urine Bilirubin Urine Ictotest Urine Urobilinogen Ur Leukocyte Esterase Urine RBC Urine WBC Urine Mucus Micro UA Comment Ur Microscopic Review Urine Culture Comments Acetaminophen Hepatitis A IgM Ab Hep Bs Antigen Hep B Core IgM Ab Hep C IgG Ab 11/15/18 11/15/18 06:50 16:33 WBC RBC Hgb Hct MCV MCH MCHC RDW Plt Count MPV Neut % (Auto) Lymph % (Auto) [place] % (Auto) Eos % (Auto) Baso % (Auto) Neut # (Auto) Lymph # (Auto) [place] # (Auto) Eos # (Auto) Baso # (Auto) WBC Differential Differential Comment PT INR APTT Sodium Potassium Chloride Carbon Dioxide Anion Gap BUN Creatinine Estimated GFR Random Glucose Calcium Magnesium Iron 87 TIBC 213 L % Saturation 40.9 Ferritin 1585 H Total Bilirubin AST ALT Alkaline Phosphatase Ammonia 42 H Total Protein Albumin Lipase Urine Color Urine Clarity Urine pH Ur Specific [place] Urine Protein Urine Glucose (UA) Urine Ketones Urine Occult Blood Urine Nitrate Urine Bilirubin Urine Ictotest Urine Urobilinogen Ur Leukocyte Esterase Urine RBC Urine WBC Urine Mucus Micro UA Comment Ur Microscopic Review Urine Culture Comments Acetaminophen Hepatitis A IgM Ab Hep Bs Antigen Hep B Core IgM Ab Hep C IgG Ab - Imaging Impressions Abdomen Ultrasound 11/14/18 18:21 CONCLUSION: Gallbladder not visualized. Patient denies cholecystectomy. Abdomen/Pelvis CT 11/14/18 20:02 CONCLUSION: 1. Collapsed gallbladder with diffusely thickened wall, nonspecific. 2. Abdomen and pelvis CT otherwise unremarkable. <Reno Mehta - Last Filed: 11/15/18 18:19> Assessment and Plan (1) Coagulopathy Status: Acute Code(s): D68.9 - Coagulation defect, unspecified (2) Hepatitis Status: Acute Code(s): K75.9 - Inflammatory liver disease, unspecified - Plan Patient is a pleasant 33-year-old male with past medical history significant for asthma. Patient denies any surgical history. Patient presented to [facility] emergency room with complaints of abdominal pain with loose brown stools times 1 day. Patient also presented with scleral icterus times 1 day. Upon consultation, patient states that he has been in halfway for the last 10 months and was recently released 4 days ago. Patient states that after a meal comprising of chicken, he noted that he started to have generalized pain with the above symptoms. Patient denies IV drug use, denies history of alcohol use. Patient does endorse that he smokes 1- 2 packs of cigarettes daily. Patient reports nausea and vomiting x1 2 days ago. Patient denies any fever or chills. Denies recent travel, tattoos or sick contacts. Upon arrival to emergency room, patient's hepatitis screening reactive for hepatitis A IgM. Our service has been consulted to evaluate patient for acute hepatitis A/rule out cholecystitis. Acute hepatitis A Rule out cholecystitis Patient presents with 1 day report of abdominal pain, loose brown stools and dark urine. Associated scleral icterus. Of note, patient states he has been in halfway for the last 10 months and was recently released 4 days ago. States that after eating a meal in senior care he began to feel ill. Patient denies all symptoms at this time. 11/14/2018 ultrasound of abdomen: Gallbladder not visualized. Patient denies cholecystectomy. 11/14/2018 CT abdomen and pelvis:. Collapsed gallbladder with diffusely thickened wall, nonspecific. Abdomen and pelvis CT otherwise unremarkable. -WBC 6.9 hemoglobin 11.0 hematocrit 31.9 platelet count 246 INR 1.1 -Total bilirubin 13.2 AST 413 ALT 1249 alk phos 113 albumin 2.4 -Hepatitis a reactive IgM Plan Diet as tolerated Monitor labs liver function-trending down at this time Monitor for abdominal discomfort nausea or vomiting HIDA scan MRCP Antiemetics and analgesics as per attending Supportive care Continue IV hydration Liver workup This patient has been seen by myself and Dr. Mehta and this note is written on his behalf - Attending Attestation Dr. Mehta <Virginia Valdes - Last Filed: 11/15/18 16:02> (1) Coagulopathy Status: Acute Code(s): D68.9 - Coagulation defect, unspecified (2) Hepatitis Status: Acute Code(s): K75.9 - Inflammatory liver disease, unspecified - Attending Attestation Seen and examined, acute hep A. Supportive care and contact isolation. Hydration and monitor labs. Thank you for the consult. <Reno Mehta - Last Filed: 11/15/18 18:19>
[2018-11-15 15:33] LABS: % Iron Saturation 40.9 % (20-50)
[2018-11-15] MEDS ORDERED: SODIUM CHLOR 0.9% IV.SIG ONE (17:00)
[2018-11-15] MEDS ORDERED: SINCALIDE IV.SIG ONE (17:00)
--- NOTE | 2018-11-15 20:01 | NM ---
EXAM DATE: 11/15/2018 7:54 PM EST AGE/SEX: 33 years / Male INDICATIONS: Jaundice. Nausea and vomiting. CLINICAL DATA: This is the patient's initial encounter. Patient reports that signs and symptoms have been present for 1 day and indicates a pain score of 0/10. MEDICAL/SURGICAL HISTORY: Asthma. None. COMPARISON: [facility] [place], CT ABDOMEN & PELVIS W CONTRAST, 11/14/2018. . DOSE: 4.4 mCi Tc-99m mebrofenin i.v. TECHNIQUE: Following the intravenous administration of radiotracer, dynamic sequential images were pe rformed with continuous acquisition. Time-activity curves were generated. FINDINGS: There is markedly impaired clearance of radiotracer activity from the blood pool indicating severe he patocellular dysfunction. No significant excreted activity is present. The appearance would be most c onsistent with severe cholestatic hepatitis. CONCLUSION: As above Electronically signed by: Leon Santoyo MD Board Certified Radiologist 11/15/2018 7:59 PM EST
[2018-11-16] MEDS: Piperacil/Tazo 4.5 GM Premix 4.5 GM/100 ML BAG IV.SIG SCH ×5 (01:02→22:17)
[2018-11-16] MEDS: Sod Chloride 0.9% Inj 1,000 ML IV.CONT SCH ×3 (06:39→17:06)
[2018-11-16 07:35] LABS: Baso % (Auto) 0.7 % (0.0-2.0); Eos # (Auto) 0.1 th/mm3 (0.0-0.4); Eos % (Auto) 0.8 % (0.0-4.0); Hematocrit 33.8 % (39.0-51.0); Hemoglobin 11.6 gm/dL (13.0-17.0); Lymph # (Auto) 1.3 th/mm3 (1.0-4.8); Lymph % (Auto) 19.7 % (9.0-44.0); Mean Corpuscular HGB Conc 34.3 % (32.0-36.0); Mean Corpuscular Hemoglobin 29.2 pg (27.0-34.0); Mean Corpuscular Volume 85.1 fL (80.0-100.0); Mean Platelet Volume 8.4 fL (7.0-11.0); Mono # (Auto) 1.1 th/mm3 (0.0-0.9); Mono % (Auto) 15.5 % (0.0-8.0); Neut # (Auto) 4.3 th/mm3 (1.8-7.7); Neut % (Auto) 63.3 % (16.0-70.0); Platelet Count 288 th/mm3 (150-450); Red Blood Count 3.97 mil/mm3 (4.50-5.90); White Blood Count 6.8 th/mm3 (4.0-11.0)
[2018-11-16 08:00] LABS: Albumin 2.4 g/dL (3.4-5.0); Anion Gap 7 meq/L (5-15); Aspartate Aminotransferase 291 U/L (15-37); Blood Urea Nitrogen 9 mg/dL (7-18); Calcium 8.2 mg/dL (8.5-10.1); Carbon Dioxide 24.6 meq/L (21.0-32.0); Chloride 106 meq/L (98-107); Glomerular Filtration Rate Greater Than 89 mL/min (>89); Glucose,Random 80 mg/dL (74-106); Potassium 3.6 meq/L (3.5-5.1); Sodium 138 meq/L (136-145)
[2018-11-16 08:01] LABS: Alanine Aminotransferase 960 U/L (12-78)
[2018-11-16 08:03] LABS: Alkaline Phosphatase 126 U/L (45-117); Total Protein 7.3 g/dL (6.4-8.2)
[2018-11-16] MEDS: Senna/Docusate Sodium 8.6/50 MG Tablet PO SCH ×2 (08:59→22:18)
--- NOTE | 2018-11-16 09:48 | P.PN ---
Subjective Interval history: Follow-up acute hepatitis A November 15, 2018-patient seen and examined, denies any diarrhea, complains of abdominal soreness. No nausea or emesis. He denies any recent travel overseas November 16, 2018-patient seen and examined, had episode of emesis yesterday. HIDA scan positive for cholestatic hepatitis. Patient heading for MRCP Physical Exam Vital signs: Vital Signs 11/15/18 13:05 11/15/18 17:01 11/15/18 20:32 Temperature 98.6 F 98.9 F 98.2 F Pulse Rate 71 75 70 Respiratory Rate 16 16 16 Blood Pressure 154/94 H 154/86 H 158/97 H Pulse Oximetry 97 11/16/18 01:00 11/16/18 05:12 11/16/18 08:00 Temperature 98.8 F 99.1 F 97.8 F Pulse Rate 84 75 69 Respiratory Rate 18 18 18 Blood Pressure 144/84 H 150/83 H 140/86 Pulse Oximetry 94 L 96 93 L Intake & Output 11/15/18 11/16/18 11/16/18 18:59 06:59 18:59 Intake Total 900 / 900 1200 / 1200 100 / 100 Balance 900 / 900 1200 / 1200 100 / 100 Intake: IV 900 / 900 1200 / 1200 100 / 100 NS Inj 1,000 ML @ 100 mls/hr IV 800 / 800 1000 / 1000 .CONT .Q10H [facility] Rx#:[id number] Zosyn 4.5 GM Premix 4.5 gm In 100 / 100 200 / 200 100 / 100 100 ml @ 200 mls/hr IV.SIG Q6H [facility] Rx#:[id number] Other: # Voids 2 Date of Last Bowel Movement 11/15/17 11/15/17 # Emeses 1 Narrative: GENERAL: NAD SKIN: Warm and dry. HEAD: Atraumatic. Normocephalic. EYES: Pupils equal and round. No scleral icterus. No injection or drainage. ENT: No nasal bleeding or discharge. Mucous membranes pink and moist. NECK: Trachea midline. No JVD. CARDIOVASCULAR: Regular rate and rhythm. RESPIRATORY: No accessory muscle use. Clear to auscultation. Breath sounds equal bilaterally. GASTROINTESTINAL: Abdomen soft, non-tender, nondistended. Hepatic and splenic margins not palpable. MUSCULOSKELETAL: Extremities without clubbing, cyanosis, or edema. No obvious deformities. NEUROLOGICAL: Awake and alert. No obvious cranial nerve deficits. Motor grossly within normal limits. Five out of 5 muscle strength in the arms and legs. Normal speech. PSYCHIATRIC: Appropriate mood and affect; insight and judgment normal. Results - Labs CBC & Chem 7: 11/16/18 06:55 11/16/18 06:55 Laboratory Results - last 24 hr 11/15/18 11/15/18 11/16/18 06:50 16:33 06:55 WBC 6.8 RBC 3.97 L Hgb 11.6 L Hct 33.8 L MCV 85.1 MCH 29.2 MCHC 34.3 RDW 14.0 Plt Count 288 MPV 8.4 Neut % (Auto) 63.3 Lymph % (Auto) 19.7 [place] % (Auto) 15.5 H Eos % (Auto) 0.8 Baso % (Auto) 0.7 Neut # (Auto) 4.3 Lymph # (Auto) 1.3 [place] # (Auto) 1.1 H Eos # (Auto) 0.1 Baso # (Auto) 0.0 WBC Differential . Differential Comment Auto diff final Sodium Potassium Chloride Carbon Dioxide Anion Gap BUN Creatinine Estimated GFR Random Glucose Calcium Iron 87 TIBC 213 L % Saturation 40.9 Ferritin 1585 H Total Bilirubin AST ALT Alkaline Phosphatase Ammonia 42 H Total Protein Albumin 11/16/18 06:55 WBC RBC Hgb Hct MCV MCH MCHC RDW Plt Count MPV Neut % (Auto) Lymph % (Auto) [place] % (Auto) Eos % (Auto) Baso % (Auto) Neut # (Auto) Lymph # (Auto) [place] # (Auto) Eos # (Auto) Baso # (Auto) WBC Differential Differential Comment Sodium 138 Potassium 3.6 Chloride 106 Carbon Dioxide 24.6 Anion Gap 7 BUN 9 Creatinine 1.00 Estimated GFR Greater than 89 Random Glucose 80 Calcium 8.2 L Iron TIBC % Saturation Ferritin Total Bilirubin 13.3 H AST 291 H ALT 960 H Alkaline Phosphatase 126 H Ammonia Total Protein 7.3 D Albumin 2.4 L - Imaging Impressions Hepatobiliary Scan Nuclear Medicine 11/15/18 00:00 CONCLUSION: As above Assessment and Plan - Assessment (1) Hepatitis Code(s): K75.9 - Inflammatory liver disease, unspecified Status: Acute (2) HTN (hypertension) Code(s): I10 - Essential (primary) hypertension Status: Acute (3) Coagulopathy Code(s): D68.9 - Coagulation defect, unspecified Status: Acute - Plan 33-year-old man with 1. Acute Hepatitis A Hepatitis profile positive for hepatitis A IgM antibody GI consultation appreciated Continue with current conservative treatment LFTs trending down, and monitor level HIDA scan positive for cholestatic hepatitis MRCP pending 2. Coagulopathy Resolved 3. HTN Improving continue analgesics, monitor BP, antihypertensives as needed for BP >180 4. DVT Prophylaxis: Pharmacologic contraindication in light of coagulopathy.
--- NOTE | 2018-11-16 10:09 | MR ---
EXAM DATE: 11/16/2018 10:00 AM EST AGE/SEX: 33 years / Male INDICATIONS: Jaundice. CLINICAL DATA: This is the patient's subsequent encounter. Patient reports that signs and symptoms h ave been present for 2 days and indicates a pain score of 0/10. MEDICAL/SURGICAL HISTORY: Hepatitis. Asthma. Liver failure. None. COMPARISON: [facility] [place] & PELVIS W CONTRAST, 11/14/2018. [facility] [place], [place] ABDOMEN COMPLETE, 11/14/2018. . TECHNIQUE: Multiplanar, multisequence images of the abdomen were obtained without contrast including dedicated cholangiographic images. FINDINGS: Liver: The liver is enlarged and demonstrates fatty infiltration. No focal hepatic mass is noted. In trahepatic Bile Ducts: There is no intrahepatic biliary ductal dilatation. Common Bile Duct: The common bile duct is normal in caliber No filling defects or obstructing lesio ns are identified. Gallbladder: There is diffuse gallbladder wall thickening and pericholecystic fluid. These findings suggest cholecystitis. Clinical correlation is recommended. Pancreas: The pancreas appears normal in signal with no focal parenchymal abnormalities. The pancrea tic duct is normal in caliber with no filling defects, or obstructing lesions identified. CONCLUSION: 1. Diffuse gallbladder wall thickening and pericholecystic fluid. These findings suggest cholecystit is. Clinical correlation is recommended. 2. Enlarged fatty liver. 3. No evidence of biliary or pancreatic ductal dilatation. Electronically signed by: Jose Ford MD Board Certified Radiologist 11/16/2018 10:08 AM EST
--- NOTE | 2018-11-16 16:33 | P.CONGS ---
[facility] - History History Provided By: Patient - Medical History Medical History: Medical History (Last Reviewed 11/14/18 @ 18:41 by María Russo) Asthma - Tobacco History Second Hand Smoke Exposure: Yes Tobacco Use In Past 30 Days: Yes Smoking Status: Current every day smoker Tobacco Type: Cigarettes - Alcohol History How Often Do You Have a Drink Containing Alcohol: Monthly or less - Substance Use History Substance History: Active Abuse - Substance Use Type Marijuana Status: Active Route Used: Inhalation Reason for Use: Get High - Travel History Recent Travel in the [place] Within the Last 8 Weeks: No Recent Travel Out of the Country Within the Last 8 Weeks: No - Immunization History Tetanus Immunization: <5 Years Hx Influenza Vaccine This Season: No Medications and Allergies Active Medications: Active Medications Al Hydroxide/Mg Hydroxide (Milk Of Magnesia Liq) 30 ml PO Q12H PRN PRN Reason: Mild Constipation Bisacodyl (Dulcolax Supp) 10 mg RECTAL DAILY PRN PRN Reason: SEVERE CONSITIPATION Clonidine HCl (Catapres) 0.2 mg PO Q6H PRN PRN Reason: SBP>160, DBP>90 Last Admin: 11/16/18 14:23 Dose: 0.2 mg Sodium Chloride (Ns Inj) 1,000 mls @ 100 mls/hr IV.CONT .[facility]10H [facility] Last Admin: 11/16/18 16:23 Dose: Not Given Piperacillin/Tazobactam/Dextrose (Zosyn 4.5 Gm Premix) 4.5 gm in 100 mls @ 200 mls/hr IV.SIG Q6H [facility] Last Infusion: 11/16/18 11:25 Dose: Infused Lactulose (Lactulose Liq) 30 ml PO DAILY PRN PRN Reason: SEVERE CONSITIPATION Morphine Sulfate (Morphine Inj) 2 mg IV.PUSH Q4H PRN PRN Reason: PAIN 6-10;IF UNABLE TO TAKE PO Naloxone HCl (Narcan Inj) 0.4 mg IV.PUSH UNSCH PRN PRN Reason: SEE LABEL COMMENTS Ondansetron HCl (Zofran Inj) 4 mg IV.PUSH Q6H PRN PRN Reason: NAUSEA OR VOMITING Oxycodone HCl (Roxicodone) 5 mg PO Q4H PRN PRN Reason: PAIN SCALE 3 TO 5 Last Admin: 11/15/18 20:20 Dose: 5 mg Senna/Docusate Sodium (Nidia-Colace) 1 tab PO BID [facility] Last Admin: 11/16/18 08:59 Dose: 1 tab Sennosides (Senokot) 17.2 mg PO Q12H PRN PRN Reason: Moderate Constipation Sodium Chloride (Ns Flush) 2 ml IV.FLUSH PRN PRN PRN Reason: FLUSH AFTER USING IV ACCESS Sodium Chloride (Ns Flush) 2 ml IV.FLUSH BID [facility] Last Admin: 11/16/18 08:59 Dose: Not Given Allergies Allergy/AdvReac Type Severity Reaction Status Date / Time *MDRO Multi-Drug Resistant AdvReac Unknown Uncoded 12/18/14 10:28 Organism Home Medications Medication Instructions Recorded Confirmed Type No Known Home Medications 11/14/18 11/14/18 History Exam Vital signs: Vital Signs 11/15/18 17:01 11/15/18 20:32 11/16/18 01:00 Temperature 98.9 F 98.2 F 98.8 F Pulse Rate 75 70 84 Respiratory Rate 16 16 18 Blood Pressure 154/86 H 158/97 H 144/84 H Pulse Oximetry 97 94 L 11/16/18 05:12 11/16/18 08:00 11/16/18 12:00 Temperature 99.1 F 97.8 F 96.8 F L Pulse Rate 75 69 74 Respiratory Rate 18 18 18 Blood Pressure 150/83 H 140/86 180/111 H Pulse Oximetry 96 93 L 92 L 11/16/18 13:00 Temperature Pulse Rate Respiratory Rate Blood Pressure 175/100 H Pulse Oximetry Intake & Output 11/15/18 11/16/18 11/16/18 18:59 06:59 18:59 Intake Total 900 / 900 1200 / 1200 200 / 200 Balance 900 / 900 1200 / 1200 200 / 200 Intake: IV 900 / 900 1200 / 1200 200 / 200 NS Inj 1,000 ML @ 100 mls/hr IV 800 / 800 1000 / 1000 .CONT .Q10H [facility] Rx#:[id number] Zosyn 4.5 GM Premix 4.5 gm In 100 / 100 200 / 200 200 / 200 100 ml @ 200 mls/hr IV.SIG Q6H [facility] Rx#:[id number] Other: # Voids 2 Date of Last Bowel Movement 11/15/17 11/15/17 11/15/17 # Emeses 1 Results - Labs 11/16/18 06:55 11/16/18 06:55 Laboratory Results - last 24 hr 11/15/18 11/16/18 11/16/18 16:33 06:55 06:55 WBC 6.8 RBC 3.97 L Hgb 11.6 L Hct 33.8 L MCV 85.1 MCH 29.2 MCHC 34.3 RDW 14.0 Plt Count 288 MPV 8.4 Neut % (Auto) 63.3 Lymph % (Auto) 19.7 [place] % (Auto) 15.5 H Eos % (Auto) 0.8 Baso % (Auto) 0.7 Neut # (Auto) 4.3 Lymph # (Auto) 1.3 [place] # (Auto) 1.1 H Eos # (Auto) 0.1 Baso # (Auto) 0.0 WBC Differential . Differential Comment Auto diff final Sodium 138 Potassium 3.6 Chloride 106 Carbon Dioxide 24.6 Anion Gap 7 BUN 9 Creatinine 1.00 Estimated GFR Greater than 89 Random Glucose 80 Calcium 8.2 L Total Bilirubin 13.3 H AST 291 H ALT 960 H Alkaline Phosphatase 126 H Ammonia 42 H Total Protein 7.3 D Albumin 2.4 L - Imaging Imaging: ITS Impressions Abdomen Ultrasound 11/14/18 18:21 CONCLUSION: Gallbladder not visualized. Patient denies cholecystectomy. Abdomen/Pelvis CT 11/14/18 20:02 CONCLUSION: 1. Collapsed gallbladder with diffusely thickened wall, nonspecific. 2. Abdomen and pelvis CT otherwise unremarkable. Hepatobiliary Scan Nuclear Medicine 11/15/18 00:00 CONCLUSION: As above Cholangiopancreatography MRI 11/16/18 16:09 CONCLUSION: 1. Diffuse gallbladder wall thickening and pericholecystic fluid. These findings suggest cholecystitis. Clinical correlation is recommended. 2. Enlarged fatty liver. 3. No evidence of biliary or pancreatic ductal dilatation.
--- NOTE | 2018-11-16 16:56 | P.PNGI ---
Subjective Interval history: Patient sitting up in bed Watching television States tolerating diet well Denies abdominal pain nausea or vomiting <Virginia Valdes - Last Filed: 11/16/18 16:51> Physical Exam Vital signs: Vital Signs 11/15/18 17:01 11/15/18 20:32 11/16/18 01:00 Temperature 98.9 F 98.2 F 98.8 F Pulse Rate 75 70 84 Respiratory Rate 16 16 18 Blood Pressure 154/86 H 158/97 H 144/84 H Pulse Oximetry 97 94 L 11/16/18 05:12 11/16/18 08:00 11/16/18 12:00 Temperature 99.1 F 97.8 F 96.8 F L Pulse Rate 75 69 74 Respiratory Rate 18 18 18 Blood Pressure 150/83 H 140/86 180/111 H Pulse Oximetry 96 93 L 92 L 11/16/18 13:00 Temperature Pulse Rate Respiratory Rate Blood Pressure 175/100 H Pulse Oximetry Intake & Output 11/15/18 11/16/18 11/16/18 18:59 06:59 18:59 Intake Total 900 / 900 1200 / 1200 200 / 200 Balance 900 / 900 1200 / 1200 200 / 200 Intake: IV 900 / 900 1200 / 1200 200 / 200 NS Inj 1,000 ML @ 100 mls/hr IV 800 / 800 1000 / 1000 .CONT .Q10H [facility] Rx#:[id number] Zosyn 4.5 GM Premix 4.5 gm In 100 / 100 200 / 200 200 / 200 100 ml @ 200 mls/hr IV.SIG Q6H [facility] Rx#:[id number] Other: # Voids 2 Date of Last Bowel Movement 11/15/17 11/15/17 11/15/17 # Emeses 1 - Constitutional no acute distress - Routine HEENT Exam Head: Present: normocephalic Eye: Present: conjunctival icterus - Routine Neck Exam Present: supple - Routine Respiratory Exam Present: CTA bilaterally. Absent: accessory muscle use - Routine Cardiovascular Exam Present: RRR, S1, S2 - Routine Abdominal Exam Present: soft, normoactive bowel sounds. Absent: tenderness, distended, firm - Routine Extremities Exam Absent: edema - Routine Skin Exam Present: dry, warm - Routine Neurological Exam Present: alert, oriented X3 <Virginia Valdes - Last Filed: 11/16/18 16:51> Vital signs: Vital Signs 11/16/18 12:00 11/16/18 13:00 11/16/18 16:00 Temperature 96.8 F L 98.9 F Pulse Rate 74 71 Respiratory Rate 18 18 Blood Pressure 180/111 H 175/100 H 144/84 H Pulse Oximetry 92 L 97 11/16/18 20:00 11/17/18 04:00 11/17/18 08:14 Temperature 97.3 F L 98.5 F Pulse Rate 68 65 78 Respiratory Rate 20 18 20 Blood Pressure 159/93 H 160/95 H 168/91 H Pulse Oximetry 94 L 99 Intake & Output 11/16/18 11/17/18 11/17/18 18:59 06:59 18:59 Intake Total 1200 / 1200 1300 / 1300 Balance 1200 / 1200 1300 / 1300 Intake: IV 1200 / 1200 1300 / 1300 NS Inj 1,000 ML @ 100 mls/hr IV 1000 / 1000 1000 / 1000 .CONT .Q10H [facility] Rx#:[id number] Zosyn 4.5 GM Premix 4.5 gm In 200 / 200 300 / 300 100 ml @ 200 mls/hr IV.SIG Q6H [facility] Rx#:[id number] Other: # Voids 3 Date of Last Bowel Movement 11/15/17 11/16/17 <Reno Mehta A - Last Filed: 11/17/18 10:58> Results - Labs CBC & Chem 7: 11/16/18 06:55 11/16/18 06:55 Laboratory Results - last 24 hr 11/15/18 11/16/18 11/16/18 16:33 06:55 06:55 WBC 6.8 RBC 3.97 L Hgb 11.6 L Hct 33.8 L MCV 85.1 MCH 29.2 MCHC 34.3 RDW 14.0 Plt Count 288 MPV 8.4 Neut % (Auto) 63.3 Lymph % (Auto) 19.7 [place] % (Auto) 15.5 H Eos % (Auto) 0.8 Baso % (Auto) 0.7 Neut # (Auto) 4.3 Lymph # (Auto) 1.3 [place] # (Auto) 1.1 H Eos # (Auto) 0.1 Baso # (Auto) 0.0 WBC Differential . Differential Comment Auto diff final Sodium 138 Potassium 3.6 Chloride 106 Carbon Dioxide 24.6 Anion Gap 7 BUN 9 Creatinine 1.00 Estimated GFR Greater than 89 Random Glucose 80 Calcium 8.2 L Total Bilirubin 13.3 H AST 291 H ALT 960 H Alkaline Phosphatase 126 H Ammonia 42 H Total Protein 7.3 D Albumin 2.4 L - Imaging Impressions Hepatobiliary Scan Nuclear Medicine 11/15/18 00:00 CONCLUSION: As above Cholangiopancreatography MRI 11/16/18 16:09 CONCLUSION: 1. Diffuse gallbladder wall thickening and pericholecystic fluid. These findings suggest cholecystitis. Clinical correlation is recommended. 2. Enlarged fatty liver. 3. No evidence of biliary or pancreatic ductal dilatation. <Virginia Valdes - Last Filed: 11/16/18 16:51> - Labs CBC & Chem 7: 11/17/18 07:33 11/17/18 07:33 Laboratory Results - last 24 hr 11/17/18 11/17/18 07:33 07:33 WBC 7.0 RBC 3.80 L Hgb 11.1 L Hct 33.2 L MCV 87.4 MCH 29.3 MCHC 33.5 RDW 14.1 Plt Count 284 MPV 8.5 Neut % (Auto) 65.0 Lymph % (Auto) 18.3 [place] % (Auto) 15.0 H Eos % (Auto) 1.1 Baso % (Auto) 0.6 Neut # (Auto) 4.6 Lymph # (Auto) 1.3 [place] # (Auto) 1.1 H Eos # (Auto) 0.1 Baso # (Auto) 0.0 WBC Differential . Differential Comment Auto diff final Sodium 135 L Potassium 3.6 Chloride 106 Carbon Dioxide 23.5 Anion Gap 6 BUN 11 Creatinine 1.02 Estimated GFR Greater than 89 Random Glucose 82 Calcium 8.3 L Total Bilirubin 11.6 H AST 206 H ALT 727 H Alkaline Phosphatase 116 Total Protein 7.3 Albumin 2.3 L - Imaging Impressions Cholangiopancreatography MRI 11/16/18 16:09 CONCLUSION: 1. Diffuse gallbladder wall thickening and pericholecystic fluid. These findings suggest cholecystitis. Clinical correlation is recommended. 2. Enlarged fatty liver. 3. No evidence of biliary or pancreatic ductal dilatation. <Reno Mehta - Last Filed: 11/17/18 10:58> Assessment and Plan (1) Coagulopathy Status: Acute Code(s): D68.9 - Coagulation defect, unspecified (2) Hepatitis Status: Acute Code(s): K75.9 - Inflammatory liver disease, unspecified - Plan Patient is a pleasant 33-year-old male with past medical history significant for asthma. Patient denies any surgical history. Patient presented to [facility] emergency room with complaints of abdominal pain with loose brown stools times 1 day. Patient also presented with scleral icterus times 1 day. Upon consultation, patient states that he has been in group home for the last 10 months and was recently released 4 days ago. Patient states that after a meal comprising of chicken, he noted that he started to have generalized pain with the above symptoms. Patient denies IV drug use, denies history of alcohol use. Patient does endorse that he smokes 1- 2 packs of cigarettes daily. Patient reports nausea and vomiting x1 2 days ago. Patient denies any fever or chills. Denies recent travel, tattoos or sick contacts. Upon arrival to emergency room, patient's hepatitis screening reactive for hepatitis A IgM. Our service has been consulted to evaluate patient for acute hepatitis A/rule out cholecystitis. Acute hepatitis A Rule out cholecystitis Patient presents with 1 day report of abdominal pain, loose brown stools and dark urine. Associated scleral icterus. Of note, patient states he has been in group home for the last 10 months and was recently released 4 days ago. States that [place] he began to feel ill. Patient denies all symptoms at this time. 11/14/2018 ultrasound of abdomen: Gallbladder not visualized. Patient denies cholecystectomy. 11/14/2018 CT abdomen and pelvis:. Collapsed gallbladder with diffusely thickened wall, nonspecific. Abdomen and pelvis CT otherwise unremarkable. -WBC 6.9 hemoglobin 11.0 hematocrit 31.9 platelet count 246 INR 1.1 -Total bilirubin 13.2 AST 413 ALT 1249 alk phos 113 albumin 2.4 -Hepatitis a reactive IgM 11/16/2018 Patient sitting up in bed Denies abdominal pain nausea vomiting WBC 6.8 hemoglobin 11.6 hematocrit 33.8 platelet count 280 Total bilirubin 13.3 AST 291 ALT 960 alk phos 126 trending down 11/15/2018 HIDA scan-There is markedly impaired clearance of radiotracer activity from the blood pool indicating severe hepatocellular dysfunction. No significant excreted activity is present. The appearance would be most consistent with severe cholestatic hepatitis. 11/16/2018 MRCP-Diffuse gallbladder wall thickening and pericholecystic fluid. These findings suggest cholecystitis. Clinical correlation is recommended. Enlarged fatty liver. No evidence of biliary or pancreatic ductal dilatation. Plan Diet as tolerated Monitor labs liver function-trending down at this time Monitor for abdominal discomfort nausea or vomiting Antiemetics and analgesics as per attending Supportive care Continue IV hydration Liver workup-pending This patient has been seen by myself and Dr. Mehta and this note is written on his behalf - Attending Attestation Dr. Mehta <Virginia Valdes - Last Filed: 11/16/18 16:51> (1) Coagulopathy Status: Acute Code(s): D68.9 - Coagulation defect, unspecified (2) Hepatitis Status: Acute Code(s): K75.9 - Inflammatory liver disease, unspecified - Attending Attestation Agree with above assessment and plan, supportive care for now. <Reno Mehta - Last Filed: 11/17/18 10:58>
--- NOTE | 2018-11-16 17:45 | P.CONGS ---
[facility] Gen Surgery Consult Note Consult date: 11/16/18 Reason for consult: other (concern for acute cholecytitis) Requesting physician: Munir Upton Narrative: CONSULTATION NOTE FOR SURGICAL ATTENDING, DR. LUCA ARREDONDO This is a 33 year old male with a past medical history of hypertension who was recently [facility] about three days ago. He has had no issues except from some diarrhea at home. He has no abdominal pain. His family noticed his eyes were yellow and brought him to the ED. On admission the patient's LFTs were elevated. A CT abdomen/pelvis was obtained which shows a collapsed gallbladder with wall thickening. An MRCP shows diffuse gallbladder wall thickening and pericholecystic fluid. There are findings suspicious for cholecystitis. A HIDA scan was done which showed a nonfunctioning liver. A hepatitis panel was done which is positive for hepatitis A. A General Surgery consultation has been requested. Review of Systems All other systems reviewed negative except as stated in [facility] - History History Provided By: Patient - Medical History Medical History: Medical History (Last Reviewed 11/16/18 @ 18:19 by Luca Arredondo MD) Hypertension Asthma - Surgical History Surgical History: Surgical History (Last Reviewed 11/16/18 @ 18:19 by Luca Arredondo MD) No history of previous surgery - Social History I have reviewed the patient's Social History: Yes - Tobacco History Second Hand Smoke Exposure: Yes Tobacco Use In Past 30 Days: Yes Smoking Status: Current every day smoker Tobacco Type: Cigarettes - Alcohol History How Often Do You Have a Drink Containing Alcohol: Monthly or less - Substance Use History Substance History: Active Abuse - Substance Use Type Marijuana Status: Active Route Used: Inhalation Reason for Use: Get High - Travel History Recent Travel in the [place] Within the Last 8 Weeks: No Recent Travel Out of the Country Within the Last 8 Weeks: No - Immunization History Tetanus Immunization: <5 Years Hx Influenza Vaccine This Season: No Medications and Allergies Allergies Allergy/AdvReac Type Severity Reaction Status Date / Time *MDRO Multi-Drug Resistant AdvReac Unknown Uncoded 12/18/14 10:28 Organism Home Medications Medication Instructions Recorded Confirmed Type No Known Home Medications 11/14/18 11/14/18 History Active Medications: Active Medications Al Hydroxide/Mg Hydroxide (Milk Of Magnesia Liq) 30 ml PO Q12H PRN PRN Reason: Mild Constipation Bisacodyl (Dulcolax Supp) 10 mg RECTAL DAILY PRN PRN Reason: SEVERE CONSITIPATION Clonidine HCl (Catapres) 0.2 mg PO Q6H PRN PRN Reason: SBP>160, DBP>90 Last Admin: 11/16/18 14:23 Dose: 0.2 mg Sodium Chloride (Ns Inj) 1,000 mls @ 100 mls/hr IV.CONT .Q10H [facility] Last Admin: 11/16/18 17:06 Dose: 100 mls/hr Piperacillin/Tazobactam/Dextrose (Zosyn 4.5 Gm Premix) 4.5 gm in 100 mls @ 200 mls/hr IV.SIG Q6H [facility] Last Admin: 11/16/18 17:06 Dose: 200 mls/hr Lactulose (Lactulose Liq) 30 ml PO DAILY PRN PRN Reason: SEVERE CONSITIPATION Morphine Sulfate (Morphine Inj) 2 mg IV.PUSH Q4H PRN PRN Reason: PAIN 6-10;IF UNABLE TO TAKE PO Naloxone HCl (Narcan Inj) 0.4 mg IV.PUSH UNSCH PRN PRN Reason: SEE LABEL COMMENTS Ondansetron HCl (Zofran Inj) 4 mg IV.PUSH Q6H PRN PRN Reason: NAUSEA OR VOMITING Oxycodone HCl (Roxicodone) 5 mg PO Q4H PRN PRN Reason: PAIN SCALE 3 TO 5 Last Admin: 11/15/18 20:20 Dose: 5 mg Senna/Docusate Sodium (Nidia-Colace) 1 tab PO BID [facility] Last Admin: 11/16/18 08:59 Dose: 1 tab Sennosides (Senokot) 17.2 mg PO Q12H PRN PRN Reason: Moderate Constipation Sodium Chloride (Ns Flush) 2 ml IV.FLUSH PRN PRN PRN Reason: FLUSH AFTER USING IV ACCESS Sodium Chloride (Ns Flush) 2 ml IV.FLUSH BID [facility] Last Admin: 11/16/18 08:59 Dose: Not Given Exam Vital signs: Vital Signs 11/15/18 20:32 11/16/18 01:00 11/16/18 05:12 Temperature 98.2 F 98.8 F 99.1 F Pulse Rate 70 84 75 Respiratory Rate 16 18 18 Blood Pressure 158/97 H 144/84 H 150/83 H Pulse Oximetry 97 94 L 96 11/16/18 08:00 11/16/18 12:00 11/16/18 13:00 Temperature 97.8 F 96.8 F L Pulse Rate 69 74 Respiratory Rate 18 18 Blood Pressure 140/86 180/111 H 175/100 H Pulse Oximetry 93 L 92 L Intake & Output 11/15/18 11/16/18 11/16/18 18:59 06:59 18:59 Intake Total 900 / 900 1200 / 1200 1200 / 1200 Balance 900 / 900 1200 / 1200 1200 / 1200 Intake: IV 900 / 900 1200 / 1200 1200 / 1200 NS Inj 1,000 ML @ 100 mls/hr IV 800 / 800 1000 / 1000 1000 / 1000 .CONT .Q10H [facility] Rx#:[id number] Zosyn 4.5 GM Premix 4.5 gm In 100 / 100 200 / 200 200 / 200 100 ml @ 200 mls/hr IV.SIG Q6H [facility] Rx#:[id number] Other: # Voids 2 Date of Last Bowel Movement 11/15/17 11/15/17 11/15/17 # [place] 1 Narrative: GENERAL: Very pleasant 33 year old male resting in bed in no acute distress. SKIN: Warm and dry. HEAD: Atraumatic. Normocephalic. EYES: Pupils equal and round. Sclera with yellow hue. No injection or drainage. ENT: No nasal bleeding or discharge. Mucous membranes pink and moist. NECK: Trachea midline. CARDIOVASCULAR: Regular rate and rhythm. RESPIRATORY: No accessory muscle use. Clear to auscultation. Breath sounds equal bilaterally. GASTROINTESTINAL: Abdomen soft, non-tender, nondistended. Obese abdomen. MUSCULOSKELETAL: Extremities without clubbing, cyanosis, or edema. No obvious deformities. NEUROLOGICAL: Awake and alert. No obvious cranial nerve deficits. Motor grossly within normal limits. Five out of 5 muscle strength in the arms and legs. Normal speech. PSYCHIATRIC: Appropriate mood and affect; insight and judgment normal. Results - Labs 11/16/18 06:55 11/16/18 06:55 Laboratory Results - last 24 hr 11/16/18 11/16/18 06:55 06:55 WBC 6.8 RBC 3.97 L Hgb 11.6 L Hct 33.8 L MCV 85.1 MCH 29.2 MCHC 34.3 RDW 14.0 Plt Count 288 MPV 8.4 Neut % (Auto) 63.3 Lymph % (Auto) 19.7 [place] % (Auto) 15.5 H Eos % (Auto) 0.8 Baso % (Auto) 0.7 Neut # (Auto) 4.3 Lymph # (Auto) 1.3 [place] # (Auto) 1.1 H Eos # (Auto) 0.1 Baso # (Auto) 0.0 WBC Differential . Differential Comment Auto diff final Sodium 138 Potassium 3.6 Chloride 106 Carbon Dioxide 24.6 Anion Gap 7 BUN 9 Creatinine 1.00 Estimated GFR Greater than 89 Random Glucose 80 Calcium 8.2 L Total Bilirubin 13.3 H AST 291 H ALT 960 H Alkaline Phosphatase 126 H Total Protein 7.3 D Albumin 2.4 L Abnormal Labs 11/14/18 11/14/18 11/14/18 00:03 18:34 18:34 RBC 4.41 L Hgb 12.7 L Hct 38.3 L [place] % (Auto) 16.1 H [place] # (Auto) 1.2 H PT APTT Potassium Anion Gap 4 L Estimated GFR 76 L Calcium 8.4 L TIBC Ferritin Total Bilirubin 16.6 H AST 651 H ALT 1759 H Alkaline Phosphatase 43 L Ammonia Albumin 2.8 L Urine Clarity Urine Protein Urine Bilirubin Urine Ictotest Urine WBC Urine Mucus Acetaminophen Hepatitis A IgM Ab Reactive H 11/14/18 11/14/18 11/14/18 18:34 18:34 19:07 RBC Hgb Hct [place] % (Auto) [place] # (Auto) PT 15.1 H APTT 40.6 H Potassium Anion Gap Estimated GFR Calcium TIBC Ferritin Total Bilirubin AST ALT Alkaline Phosphatase Ammonia Albumin Urine Clarity Hazy H Urine Protein 30 H Urine Bilirubin Moderate H Urine Ictotest Positive H Urine WBC 6 H Urine Mucus Many H Acetaminophen Less than 2.0 L Hepatitis A IgM Ab 11/15/18 11/15/18 11/15/18 06:50 06:50 06:50 RBC 3.73 L Hgb 11.0 L Hct 31.9 L [place] % (Auto) 18.6 H [place] # (Auto) 1.3 H PT APTT Potassium 3.4 L Anion Gap Estimated GFR Calcium 7.9 L TIBC 213 L Ferritin 1585 H Total Bilirubin 13.2 H AST 413 H ALT 1249 H Alkaline Phosphatase Ammonia Albumin 2.4 L Urine Clarity Urine Protein Urine Bilirubin Urine Ictotest Urine WBC Urine Mucus Acetaminophen Hepatitis A IgM Ab 11/15/18 11/16/18 11/16/18 16:33 06:55 06:55 RBC 3.97 L Hgb 11.6 L Hct 33.8 L [place] % (Auto) 15.5 H [place] # (Auto) 1.1 H PT APTT Potassium Anion Gap Estimated GFR Calcium 8.2 L TIBC Ferritin Total Bilirubin 13.3 H AST 291 H ALT 960 H Alkaline Phosphatase 126 H Ammonia 42 H Albumin 2.4 L Urine Clarity Urine Protein Urine Bilirubin Urine Ictotest Urine WBC Urine Mucus Acetaminophen Hepatitis A IgM Ab - Imaging Imaging: ITS Impressions Abdomen Ultrasound 11/14/18 18:21 CONCLUSION: Gallbladder not visualized. Patient denies cholecystectomy. Abdomen/Pelvis CT 11/14/18 20:02 CONCLUSION: 1. Collapsed gallbladder with diffusely thickened wall, nonspecific. 2. Abdomen and pelvis CT otherwise unremarkable. Hepatobiliary Scan Nuclear Medicine 11/15/18 00:00 CONCLUSION: FINDINGS: There is markedly impaired clearance of radiotracer activity from the blood pool indicating severe hepatocellular dysfunction. No significant excreted activity is present. The appearance would be most consistent with severe cholestatic hepatitis. Cholangiopancreatography MRI 11/16/18 16:09 CONCLUSION: 1. Diffuse gallbladder wall thickening and pericholecystic fluid. These findings suggest cholecystitis. Clinical correlation is recommended. 2. Enlarged fatty liver. 3. No evidence of biliary or pancreatic ductal dilatation. HIDA scan: report reviewed, image reviewed CT scan - abdomen: report reviewed, image reviewed US - abdomen: report reviewed, image reviewed Additional studies: HIDA and MRCP reviewed Assessment and Plan - Assessment (1) Acute hepatitis A Code(s): B15.9 - Hepatitis A without hepatic coma Status: Acute (2) Acute liver failure Code(s): K72.00 - Acute and subacute hepatic failure without coma Status: Acute Qualifiers: Hepatic coma status: without hepatic coma Qualified Code(s): K72.00 - Acute and subacute hepatic failure without coma (3) HTN (hypertension) Code(s): I10 - Essential (primary) hypertension Status: Acute Qualifiers: Hypertension type: essential hypertension Qualified Code(s): I10 - Essential (primary) hypertension (4) Hepatitis A Code(s): B15.9 - Hepatitis A without hepatic coma Status: Acute Qualifiers: Hepatic coma status: without hepatic coma Qualified Code(s): B15.9 - Hepatitis A without hepatic coma (5) Jaundice due to hepatitis Code(s): K75.9 - Inflammatory liver disease, unspecified Status: Acute (6) Total bilirubin, elevated Code(s): R17 - Unspecified jaundice Status: Acute (7) Hepatitis Code(s): K75.9 - Inflammatory liver disease, unspecified Status: Acute (8) Liver enzyme elevation Code(s): R74.8 - Abnormal levels of other serum enzymes Status: Acute - Plan 33 year old male with elevated LFTs; jaundice -No clear indication of acute cholecystitis -Inflammation on images likely related to hepatitis -Repeat LFTs and continue supportive care for hepatitis A -Diet as tolerated -Discussed with patient and family that patient can follow up in the office if the patient developed RUQ pain -All questions answered -Thank you for this consult Discussed Condition With: Dr. Maria Elena Upton Mr. Arthur and family at the bedside - Attending Attestation CONSULTATION NOTE FOR SURGICAL ATTENDING, DR. LUCA ARREDONDO Patient has acute liver failure secondary to acute hepatitis A I suspect the fluid around the liver and gallbladder is a result of his inflamed liver. The HIDA scan results are typical findings seen on hepatic dysfunction I see no clinical indication to proceed with cholecystectomy I agree with above assessment and plan. The exam, history, and the medical decision-making described in the above note were completed with the assistance of the mid-level provider. I reviewed and agree with the findings presented. I attest that I had a [id number] encounter with the patient on the same day, and personally performed and documented my assessment and findings in the medical record. The following services were provided during this hospital visit: Chart data review, vital sign assessments/reviewing monitor data Review of consultations notes if present. Medication orders/review and/or management Ordering and/or reviewing lab tests Ordering and/or interpreting/reviewing x-rays and/or diagnostic studies Care of the patient and discussion of the patient with the care team Documentation time To help prompt me to consider important information that might be impacting today's encounter and assessment, Information from prior notes written by myself or my colleagues may have been "brought forward/copy and pasted" into today's note.
[2018-11-17] MEDS: Sod Chloride 0.9% Inj 1,000 ML IV.CONT SCH ×2 (04:44→11:18)
[2018-11-17] MEDS: Piperacil/Tazo 4.5 GM Premix 4.5 GM/100 ML BAG IV.SIG SCH (04:44)
[2018-11-17 08:16] VITALS: BP 168/91; PULSE 78; RESP 20; TEMP 98.5; O2SAT 99
[2018-11-17 08:23] LABS: Baso % (Auto) 0.6 % (0.0-2.0); Eos # (Auto) 0.1 th/mm3 (0.0-0.4); Eos % (Auto) 1.1 % (0.0-4.0); Hematocrit 33.2 % (39.0-51.0); Hemoglobin 11.1 gm/dL (13.0-17.0); Lymph # (Auto) 1.3 th/mm3 (1.0-4.8); Lymph % (Auto) 18.3 % (9.0-44.0); Mean Corpuscular HGB Conc 33.5 % (32.0-36.0); Mean Corpuscular Hemoglobin 29.3 pg (27.0-34.0); Mean Corpuscular Volume 87.4 fL (80.0-100.0); Mean Platelet Volume 8.5 fL (7.0-11.0); Mono # (Auto) 1.1 th/mm3 (0.0-0.9); Neut # (Auto) 4.6 th/mm3 (1.8-7.7); Platelet Count 284 th/mm3 (150-450); Red Cell Distribution Width 14.1 % (11.6-17.2)
[2018-11-17 08:49] LABS: Alkaline Phosphatase 116 U/L (45-117); Total Protein 7.3 g/dL (6.4-8.2)
[2018-11-17 08:50] LABS: Alanine Aminotransferase 727 U/L (12-78); Albumin 2.3 g/dL (3.4-5.0); Anion Gap 6 meq/L (5-15); Aspartate Aminotransferase 206 U/L (15-37); Blood Urea Nitrogen 11 mg/dL (7-18); Calcium 8.3 mg/dL (8.5-10.1); Carbon Dioxide 23.5 meq/L (21.0-32.0); Chloride 106 meq/L (98-107); Glomerular Filtration Rate Greater Than 89 mL/min (>89); Glucose,Random 82 mg/dL (74-106); Potassium 3.6 meq/L (3.5-5.1)
[2018-11-17 09:01] LABS: Sodium 135 meq/L (136-145)
--- NOTE | 2018-11-17 10:34 | P.PN ---
Subjective Interval history: Follow-up acute hepatitis A November 15, 2018-patient seen and examined, denies any diarrhea, complains of abdominal soreness. No nausea or emesis. He denies any recent travel overseas November 16, 2018-patient seen and examined, had episode of emesis yesterday. HIDA scan positive for cholestatic hepatitis. Patient heading for MRCP November 17, 2018-patient seen and examined, LFTs trending down. No abdominal pain. No nausea no vomiting p.o. intake. Looking forward went home today. Patient was seen by general surgery yesterday for questionable cholecystitis Physical Exam Vital signs: Vital Signs 11/16/18 12:00 11/16/18 13:00 11/16/18 16:00 Temperature 96.8 F L 98.9 F Pulse Rate 74 71 Respiratory Rate 18 18 Blood Pressure 180/111 H 175/100 H 144/84 H Pulse Oximetry 92 L 97 11/16/18 20:00 11/17/18 04:00 11/17/18 08:14 Temperature 97.3 F L 98.5 F Pulse Rate 68 65 78 Respiratory Rate 20 18 20 Blood Pressure 159/93 H 160/95 H 168/91 H Pulse Oximetry 94 L 99 Intake & Output 11/16/18 11/17/18 11/17/18 18:59 06:59 18:59 Intake Total 1200 / 1200 1300 / 1300 Balance 1200 / 1200 1300 / 1300 Intake: IV 1200 / 1200 1300 / 1300 NS Inj 1,000 ML @ 100 mls/hr IV 1000 / 1000 1000 / 1000 .CONT .Q10H [facility] Rx#:[id number] Zosyn 4.5 GM Premix 4.5 gm In 200 / 200 300 / 300 100 ml @ 200 mls/hr IV.SIG Q6H [facility] Rx#:[id number] Other: # Voids 3 Date of Last Bowel Movement 11/15/17 11/16/17 Results - Labs CBC & Chem 7: 11/17/18 07:33 11/17/18 07:33 Laboratory Results - last 24 hr 11/17/18 11/17/18 07:33 07:33 WBC 7.0 RBC 3.80 L Hgb 11.1 L Hct 33.2 L MCV 87.4 MCH 29.3 MCHC 33.5 RDW 14.1 Plt Count 284 MPV 8.5 Neut % (Auto) 65.0 Lymph % (Auto) 18.3 [place] % (Auto) 15.0 H Eos % (Auto) 1.1 Baso % (Auto) 0.6 Neut # (Auto) 4.6 Lymph # (Auto) 1.3 [place] # (Auto) 1.1 H Eos # (Auto) 0.1 Baso # (Auto) 0.0 WBC Differential . Differential Comment Auto diff final Sodium 135 L Potassium 3.6 Chloride 106 Carbon Dioxide 23.5 Anion Gap 6 BUN 11 Creatinine 1.02 Estimated GFR Greater than 89 Random Glucose 82 Calcium 8.3 L Total Bilirubin 11.6 H AST 206 H ALT 727 H Alkaline Phosphatase 116 Total Protein 7.3 Albumin 2.3 L - Imaging Impressions Cholangiopancreatography MRI 11/16/18 16:09 CONCLUSION: 1. Diffuse gallbladder wall thickening and pericholecystic fluid. These findings suggest cholecystitis. Clinical correlation is recommended. 2. Enlarged fatty liver. 3. No evidence of biliary or pancreatic ductal dilatation. Assessment and Plan - Assessment (1) Hepatitis Code(s): K75.9 - Inflammatory liver disease, unspecified Status: Acute (2) HTN (hypertension) Code(s): I10 - Essential (primary) hypertension Status: Acute (3) Coagulopathy Code(s): D68.9 - Coagulation defect, unspecified Status: Acute - Plan 33-year-old man with 1. Acute Hepatitis A Hepatitis profile positive for hepatitis A IgM antibody GI consultation appreciated Continue with current conservative treatment LFTs trending down, and monitor level HIDA scan positive for cholestatic hepatitis MRCP report noted General surgery was consulted 11/16/18 for possible cholecystitis however No clear indication of acute cholecystitis 2. Coagulopathy Resolved 3. HTN Improved continue analgesics, monitor BP, antihypertensives as needed for BP >180 4. DVT Prophylaxis: Pharmacologic contraindication in light of coagulopathy. (2) HTN (hypertension) Qualifiers: Hypertension type: essential hypertension Qualified Code(s): I10 - Essential (primary) hypertension
--- NOTE | 2018-11-17 10:46 | P.DS ---
Date of admission: 11/14/18 22:34 Primary care physician: No Primary Care Physician Brief History from admission: This is a 33-year-old male with no reported PMH who presents the ER with complaints of abdominal pain, brown-colored urine and scleral icterus. States he was in detention for the last 10 months, was released on , had some chicken then developed generalized abdominal pain, now w/ brown-colored urine and icterus. No previous h/o similar symptoms. States he was tested for Hepatitis in skilled nursing and was negative. Denies IVDU. No h/o Alcohol. On arrival, BP 156/93, HR 81, O2 sat 99% on RA, Temp 99.4. CBC essentially unremarkable. INR 1.5. Chemistry unremarkable. Total Bili 16.6. AST 651. ALT 1759. ALP 43. Lipase 114. UA negative for UTI. CT Abdomen/Pelvis collapsed gallbladder with diffusely thickened wall. Gallbladder US, gallbladder not visualized no history of cholecystectomy. DS: Diagnosis - Discharge Diagnosis (1) Hepatitis Status: Acute (2) HTN (hypertension) Status: Acute (3) Coagulopathy Status: Acute DS: Summary Hospital Course: While in hospital, patient was treated for; 1. Acute Hepatitis A Hepatitis profile positive for hepatitis A IgM antibody GI consultation appreciated Continue with current conservative treatment LFTs and T bili trending down, and monitor level HIDA scan positive for cholestatic hepatitis MRCP report noted General surgery was consulted 11/16/18 for possible cholecystitis however No clear indication of acute cholecystitis 2. Coagulopathy Resolved 3. HTN Improved continue analgesics, monitor BP, antihypertensives as needed for BP >180 4. DVT Prophylaxis: Pharmacologic contraindication in light of coagulopathy. - Time Spent with Patient Total time spent providing and/or coordinating discharge services: Less than 30 minutes - Quality: VTE Deep Vein Thrombosis/Pulmonary Embolism Present on Admission: No Exam Vital signs: Vital Signs 11/16/18 12:00 11/16/18 13:00 11/16/18 16:00 Temperature 96.8 F L 98.9 F Pulse Rate 74 71 Respiratory Rate 18 18 Blood Pressure 180/111 H 175/100 H 144/84 H Pulse Oximetry 92 L 97 11/16/18 20:00 11/17/18 04:00 11/17/18 08:14 Temperature 97.3 F L 98.5 F Pulse Rate 68 65 78 Respiratory Rate 20 18 20 Blood Pressure 159/93 H 160/95 H 168/91 H Pulse Oximetry 94 L 99 Intake & Output 11/16/18 11/17/18 11/17/18 18:59 06:59 18:59 Intake Total 1200 / 1200 1300 / 1300 Balance 1200 / 1200 1300 / 1300 Intake: IV 1200 / 1200 1300 / 1300 NS Inj 1,000 ML @ 100 mls/hr IV 1000 / 1000 1000 / 1000 .CONT .Q10H [facility] Rx#:[id number] Zosyn 4.5 GM Premix 4.5 gm In 200 / 200 300 / 300 100 ml @ 200 mls/hr IV.SIG Q6H [facility] Rx#:[id number] Other: # Voids 3 Date of Last Bowel Movement 11/15/17 11/16/17 Narrative: GENERAL: NAD SKIN: Warm and dry. HEAD: Atraumatic. Normocephalic. EYES: Pupils equal and round. No scleral icterus. No injection or drainage. ENT: No nasal bleeding or discharge. Mucous membranes pink and moist. NECK: Trachea midline. No JVD. CARDIOVASCULAR: Regular rate and rhythm. RESPIRATORY: No accessory muscle use. Clear to auscultation. Breath sounds equal bilaterally. GASTROINTESTINAL: Abdomen soft, non-tender, nondistended. Hepatic and splenic margins not palpable. MUSCULOSKELETAL: Extremities without clubbing, cyanosis, or edema. No obvious deformities. NEUROLOGICAL: Awake and alert. No obvious cranial nerve deficits. Motor grossly within normal limits. Five out of 5 muscle strength in the arms and legs. Normal speech. PSYCHIATRIC: Appropriate mood and affect; insight and judgment normal. Results Procedures completed during hospitalization: None Labs on day of discharge: Labs from last 24 hours 11/17/18 11/17/18 07:33 07:33 WBC 7.0 RBC 3.80 L Hgb 11.1 L Hct 33.2 L MCV 87.4 MCH 29.3 MCHC 33.5 RDW 14.1 Plt Count 284 MPV 8.5 Neut % (Auto) 65.0 Lymph % (Auto) 18.3 [place] % (Auto) 15.0 H Eos % (Auto) 1.1 Baso % (Auto) 0.6 Neut # (Auto) 4.6 Lymph # (Auto) 1.3 [place] # (Auto) 1.1 H Eos # (Auto) 0.1 Baso # (Auto) 0.0 WBC Differential . Differential Comment Auto diff final Sodium 135 L Potassium 3.6 Chloride 106 Carbon Dioxide 23.5 Anion Gap 6 BUN 11 Creatinine 1.02 Estimated GFR Greater than 89 Random Glucose 82 Calcium 8.3 L Total Bilirubin 11.6 H AST 206 H ALT 727 H Alkaline Phosphatase 116 Total Protein 7.3 Albumin 2.3 L - Impressions ITS Impressions Abdomen Ultrasound 11/14/18 18:21 CONCLUSION: Gallbladder not visualized. Patient denies cholecystectomy. Abdomen/Pelvis CT 11/14/18 20:02 CONCLUSION: 1. Collapsed gallbladder with diffusely thickened wall, nonspecific. 2. Abdomen and pelvis CT otherwise unremarkable. Hepatobiliary Scan Nuclear Medicine 11/15/18 00:00 CONCLUSION: As above Cholangiopancreatography MRI 11/16/18 16:09 CONCLUSION: 1. Diffuse gallbladder wall thickening and pericholecystic fluid. These findings suggest cholecystitis. Clinical correlation is recommended. 2. Enlarged fatty liver. 3. No evidence of biliary or pancreatic ductal dilatation. Discharge Plan - Discharge Disposition Patient Disposition: Discharge Home - Discharge Condition Condition: Stable - Discharge Order Discharge Orders: Discharge Order (Routine); Ordered 11/17/18 Ordered By: Munir Upton - Physicians Team Primary Care Provider: Primary Care Alayna Gamez Attending Provider: Munir Upton Other Providers: Reno Mehta MD ; Luca Arredondo MD
[2018-11-17] MEDS: Senna/Docusate Sodium 8.6/50 MG Tablet PO SCH (11:18)
[2018-11-18 03:49] LABS: DS DNA Ab (Crithidia) NEGATIVE (NEGATIVE)
[2018-11-18 19:53] LABS: Ceruloplasmin 28 mg/dL (18-36)
== END 2018-11-17 11:18 | disposition home or self-care (01) | DRG 441 ==
LOC: NEPD 17:37 → NEDA 22:34 → NEPHCDU 11-15 01:30
PROVIDERS: ADMIT Hospitalist; ATTEND Hospitalist
DX: K72.00 Acute and subacute hepatic failure without coma; K75.89 Other specified inflammatory liver diseases; R10.84 Generalized abdominal pain; F17.210 Nicotine dependence, cigarettes, uncomplicated; K76.0 Fatty (change of) liver, not elsewhere classified; J45.909 Unspecified asthma, uncomplicated; D68.9 Coagulation defect, unspecified; R11.2 Nausea with vomiting, unspecified; I10 Essential (primary) hypertension; B15.9 Hepatitis A without hepatic coma
CPT/HCPCS: 74177; 74181; 76377; 76700; 78226; 80053; 80074; 80307; 81001; 82140; 82390; 82728; 83520; 83540; 83550; 83690; 83735; 85025; 85610; 85730; 86038; 86039; 86225; 86235; 86255; 86256; 86431; 90760; 96360; 99285; A9513; A9537; C1097; J2543; J7030; Q9967